=== PATIENT | female | born 1945 | race Caucasian/White ===

== ENCOUNTER 2016-09-29 08:43 | Outpatient (CLI) | payer MEDICARE ==
[2014-08-01 13:54] VITALS: BMI 17.5
[~2016-09-29 08:43] MED LIST: DOLOPHINE HCL10 MG PO; GEMFIBROZIL600 MG PO; LEVAQUIN500 MG PO; LISINOPRIL10 MG PO; MIRALAX17 GM PO; MS CONTIN30 MG PO; PROAIR HFA8.5 GM INH; TESSALON PERLE100 MG PO; TRAZODONE HCL50 MG
== END 2016-09-29 09:40 ==
LOC: D.MAMMO 08:43
DX: R92.8 Other abnormal and inconclusive findings on diagnostic imaging of breast (principal)

== ENCOUNTER 2017-01-06 07:38 | Emergency (ER) | payer MEDICARE ==
[2014-08-01 13:54] VITALS: BMI 17.5
[2017-01-06 08:40] LABS: BASOPHILS 0.1 % (0-2); EOSINOPHILS 0.1 % (0-7); HEMATOCRIT 42.2 % (36.0-48.0); HEMOGLOBIN 13.7 g/dL (12-16); IMMATURE GRANULOCYTES 0.2 % (0-5); LYMPHOCYTES 4.3 % (15-50); MCH 28.5 pg (26.0-34.0); MCHC 32.5 g/dL (31.0-37.0); MCV 87.7 fL (80.0-100.0); MEAN PLATELET VOLUME 10.8 fL (7.4-10.4); MONOCYTES 5.3 % (2-11); RBC 4.81 10x6/uL (4.00-5.40); WBC 8.1 10x3/uL (4.8-10.8)
[2017-01-06 09:13] LABS: ALBUMIN 3.4 g/dL (3.4-5.0); ALKALINE PHOSPHATASE 85 U/L (46-116); ALT (SGPT) 20 U/L (10-68); BILIRUBIN - TOTAL 0.49 mg/dL (0.2-1.3); CALC OSMOLALITY 287 mosm/kg (275-300); CALCIUM 8.5 mg/dL (8.5-10.1); CARBON DIOXIDE 29.7 mmol/L (21.0-32.0); CHLORIDE - SERUM 105 mmol/L (98-107); CREATININE - SERUM 0.8 mg/dL (0.6-1.3); GLUCOSE 94 mg/dL (74-106); LIPASE 108 U/L (73-393); POTASSIUM - SERUM 3.3 mmol/L (3.5-5.1); PROTEIN - SERUM 6.6 g/dL (6.4-8.2); SODIUM 144 mmol/L (136-145); UREA NITROGEN 15 mg/dL (7-18); eGFR NON AFRICAN AMERICAN 75 mL/min (90-120)
[2017-01-06 09:18] LABS: PLATELET COUNT 110 10x3/uL (130-400)
[2017-01-06 09:29] LABS: APPEARANCE CLOUDY (CLEAR); BILIRUBIN NEGATIVE (NEGATIVE); COLOR YELLOW (YELLOW); GLUCOSE NEGATIVE (NEGATIVE); KETONE NEGATIVE (NEGATIVE); LEUKOCYTE ESTERASE 2+ (NEGATIVE); NITRITE NEGATIVE (NEGATIVE); PROTEIN NEGATIVE (NEGATIVE); UROBILINOGEN NORMAL (NORMAL)
[2017-01-06 09:30] LABS: BACTERIA MANY /hpf (NONE SEEN); EPITHELIAL CELLS 0-5 /hpf (0-5); MUCUS <1+ /lpf (NONE SEEN); RED CELLS - URINE 0-5 /hpf (0-5)
== END 2017-01-06 10:32 | disposition home or self-care (01) ==
LOC: D.ER 07:38
PROVIDERS: Emergency Medicine
DX: R11.10 Vomiting, unspecified (principal); K52.9 Noninfective gastroenteritis and colitis, unspecified; K21.9 Gastro-esophageal reflux disease without esophagitis

== ENCOUNTER 2017-10-11 11:33 | Inpatient (IN) | payer MEDICARE ==
[~2017-10-11] VITALS: Ht 160 cm; Wt 43.1 kg
[2017-10-11] VITALS (7 sets, daily range): BP systolic 103–138; BP diastolic 54–66; BMI 16.8
--- NOTE | ~2017-10-11 | HP ---
PATIENT: ANAHI CHINO MEDICAL RECORD: [id number] ACCOUNT: [id number] LOCATION:D.MS [address] : 45 ADMISSION DATE: 10/11/17 HISTORY AND PHYSICAL EXAMINATION HISTORY: A 71-year-old female presented to the Emergency Room with persistent recurrent abdominal pain at epigastric and right upper quadrant. She had one day of persistent nausea and vomiting; now dry heaves, chills, and sweats. PAST MEDICAL HISTORY: Significant for chronic pain, arachnoiditis. She sees a pain management physician in [place]. She is on methadone and trazodone. Also has a history of GERD. She is on omeprazole. She was recently established with her primary care physician in [place]. ALLERGIES: REPORTED PENICILLIN, BACLOFEN, CLINDAMYCIN, CODEINE, METHYLPREDNISOLONE, AND OXYCODONE. REVIEW OF SYSTEMS: GENERAL: Significant for weight loss over the past year, loss of appetite, fatigue. HEENT: Denies cephalgia, visual changes, tinnitus, epistaxis, or dysphagia. CARDIOVASCULAR: Denies chest pain. Denies palpitations. PULMONARY: Denies hemoptysis. Denies night sweats. GASTROINTESTINAL: Denies hematemesis, hematochezia, or melena. She does admit to weight loss, nausea and vomiting acutely with dry heaves this morning, fever, and chills. GENITOURINARY: Denies dysuria. MUSCULOSKELETAL: Chronic pain as noted above. ENDOCRINE: Denies polyuria, polydipsia, or polyphagia. PHYSICAL EXAMINATION: VITAL SIGNS: Temp 99.7, blood pressure 103/55, heart rate 82, respirations 18, O2 sat 94% on room air. GENERAL: Alert and oriented. No present pain, but she has been given morphine IV. HEENT: Head is normocephalic, atraumatic. Eyes; pupils are equally round and reactive. Ears; canals patent. TMs are intact. Nose; nares patent without drainage. Throat; no erythema and no exudate. NECK: Supple. No lymphadenopathy. No JVD. HEART: Regular rate and rhythm. No S3, S4. No rub. LUNGS: Clear to auscultation bilaterally. Breathing is nonlabored. ABDOMEN: Soft. Slightly cachectic appearance. Bowel sounds positive. Hypoactive. Mild epigastric tenderness. No rebound. No guarding. No palpable mass. EXTREMITIES: Present times 4. No edema. NEUROLOGIC: Intact. SKIN: Warm and dry. No rash. LABORATORY DATA: CBC; white count 16,700, hemoglobin 13.1, hematocrit 40, platelets 122. PT is 15.1, INR is 1.23. D-dimer 0.67. Chemistry shows sodium of 144, potassium 3.5, chloride 108, bicarb 28.6, BUN 16, creatinine 0.7. Lactic acid 1.9. Calcium 8.3. AST 16, ALT 15. CK 65, CK-MB 1.2, troponin less than 0.017. Urinalysis; yellow, clear, moderate bacteria. HISTORY AND PHYSICAL [id number] ANAHI CHINO DIAGNOSTIC DATA: CT of abdomen and pelvis; moderately distended gallbladder containing layering sludge, at least mild gallbladder wall thickening, pericholecystic fluid, and dilatation of the intrahepatic biliary ducts and common bile duct measuring up to 1.2 cm in diameter. Concern for biliary obstruction, acute cholecystitis. EKG; sinus rhythm, mild tachycardia. Chest x-ray; no acute cardiopulmonary process. ASSESSMENT AND PLAN: 1. Acute cholecystitis. IV fluids. Blood cultures and urine cultures pending. Invanz 1 gram daily. 2. Chronic pain. The patient has morphine ordered for her acute symptoms. We will hold home medications at this time. 3. Weight loss, persistent abdominal pain over the past year. ERCP ordered. 4. Presented with intractable nausea and vomiting. We will check amylase, lipase. TRANSINT:[id number] Voice Confirmation ID: [id number] DOCUMENT ID: [id number] GIN BENDER DO at 0753 CC: [id number] DICTATION DATE: 10/11/171727 LATHE SETUP OPERATOR: 10/11/17 1828 ADM IN [facility] [address] [place] [address]
--- NOTE | ~2017-10-11 | OP ---
PATIENT NAME: ANAHI CHINO MEDICAL RECORD: [id number] :45 LOCATION:D.MS [place] ADMISSION DATE:10/11/17 SURGEON: DANIEL MCKINNON MD DATE OF OPERATION: 10/13/2017 PREOPERATIVE DIAGNOSES: 1. Acute cholecystitis. 2. Caloric malnutrition. 3. Common bile duct dilatation. 4. Chronic opioid use. POSTOPERATIVE DIAGNOSES: 1. Acute cholecystitis. 2. Caloric malnutrition. 3. Common bile duct dilatation. 4. Chronic opioid use. PROCEDURE: Laparoscopic cholecystectomy. SURGEON: Daniel Mckinnon MD REPORT OF PROCEDURE: The patient's abdomen was prepped and draped in sterile fashion. A cutdown was made on the superior aspect of the umbilicus, and 0 Vicryls were placed in the fascia bilaterally and the fascia was incised with 15-blade. I then bluntly entered the peritoneal cavity and placed a 12-mm Josseline port. Under direct visualization, a 5 mm trocar was placed in the epigastrium and 2 more 5-mm trocars were placed in the right subcostal region. The gallbladder was elevated and showed some acute inflammatory changes with no adhesions. The gallbladder was markedly distended. We aspirated the gallbladder and there was return of bilious fluid. This made the manipulation of the gallbladder much easier. The cystic artery and cystic duct were dissected free and these were clipped proximally and distally and ligated in standard fashion. The gallbladder was then taken off the liver bed using electrocautery and placed into an Endo Catch bag. Any bleeding from the liver bed was then treated with electrocautery. We irrigated out the right upper quadrant and assured there was no sign of any bleeding or bile leakage. At this point, the ports and insufflation were then removed and the gallbladder was taken out through the umbilicus. The umbilical fascia was closed with interrupted 0 Vicryls times 3. The wounds were then irrigated out with normal saline and infused with 10 mL of 0.25% Marcaine with epinephrine. The skin incisions were closed with subcutaneous 5-0 Monocryl and dressed appropriately. COMPLICATIONS: None. CONDITION: Stable. ANESTHESIA: General endotracheal and local. BLOOD LOSS: 50 mL. TRANSINT:[id number] Voice Confirmation ID: [id number] DOCUMENT ID: [id number] OPERATIVE REPORT [id number] CHINO,ANAHI JOYCELYNDANIEL RIOS MD at 1228 CC: [id number] DICTATION DATE: 10/13/17 1527 EMPLOYEE BENEFITS ATTORNEY: 10/13/17 1545 DIS IN 10/15/17 [address] [place] [address]
[~2017-10-11 11:33] MED LIST changes: -TRAZODONE HCL50 MG; +TRAZODONE HCL50 MG PO
[2017-10-11] MEDS ORDERED: OMEPRAZOLE40 MG PO (11:37)
[2017-10-11 12:26] LABS: BASOPHILS 0.1 % (0-2); EOSINOPHILS 0.1 % (0-7); HEMOGLOBIN 13.1 g/dL (12-16); IMMATURE GRANULOCYTES 0.3 % (0-5); LYMPHOCYTES 2.6 % (15-50); MCH 28.4 pg (26.0-34.0); MCHC 32.8 g/dL (31.0-37.0); MCV 86.6 fL (80.0-100.0); MEAN PLATELET VOLUME 11.1 fL (7.4-10.4); MONOCYTES 5.7 % (2-11); NEUTROPHILS 91.2 % (40-80); PLATELET COUNT 122 10x3/uL (130-400); RBC 4.62 10x6/uL (4.00-5.40); RDW 12.2 % (11.5-14.5); WBC 16.7 10x3/uL (4.8-10.8)
[2017-10-11 12:26] LABS: APPEARANCE CLEAR (CLEAR); BILIRUBIN NEGATIVE (NEGATIVE); COLOR YELLOW (YELLOW); GLUCOSE NEGATIVE (NEGATIVE); KETONE NEGATIVE (NEGATIVE); NITRITE NEGATIVE (NEGATIVE); PROTEIN NEGATIVE (NEGATIVE); SPECIFIC GRAVITY 1.015 (1.005-1.020); UROBILINOGEN NORMAL (NORMAL)
[2017-10-11 12:30] LABS: BACTERIA MODERATE /hpf (NONE SEEN); EPITHELIAL CELLS 0-5 /hpf (0-5)
[2017-10-11 12:35] LABS: INR 1.23 (0.85-1.17); PROTIME 15.1 SECONDS (11.6-15.0)
[2017-10-11 12:37] LABS: D-DIMER-QUANTITATIVE 0.67 ug/mLFEU (0.20-0.54)
[2017-10-11 12:46] LABS: ALBUMIN 3.3 g/dL (3.4-5.0); ALKALINE PHOSPHATASE 89 U/L (46-116); ALT (SGPT) 15 U/L (10-68); CALC OSMOLALITY 287 mosm/kg (275-300); CALCIUM 8.3 mg/dL (8.5-10.1); CARBON DIOXIDE 28.6 mmol/L (21.0-32.0); CHLORIDE - SERUM 108 mmol/L (98-107); CREATININE - SERUM 0.7 mg/dL (0.6-1.3); GLUCOSE 107 mg/dL (74-106); POTASSIUM - SERUM 3.5 mmol/L (3.5-5.1); PROTEIN - SERUM 6.3 g/dL (6.4-8.2); SODIUM 144 mmol/L (136-145); UREA NITROGEN 16 mg/dL (7-18); eGFR NON AFRICAN AMERICAN 87 mL/min (90-120)
[2017-10-11 12:59] LABS: CKMB 1.2 U/L (0.0-3.6); CREATINE KINASE 65 UL (21-215); TROPONIN-I < 0.017 ng/mL (0.000-0.060)
[2017-10-12 01:10] VITALS: BP 126/53
[2017-10-12 04:30] VITALS: BP 121/57
[2017-10-12 04:53] LABS: BASOPHILS 0.1 % (0-2); EOSINOPHILS 0.8 % (0-7); HEMATOCRIT 35.5 % (36.0-48.0); HEMOGLOBIN 11.3 g/dL (12-16); IMMATURE GRANULOCYTES 0.2 % (0-5); LYMPHOCYTES 13.3 % (15-50); MCH 27.7 pg (26.0-34.0); MCHC 31.8 g/dL (31.0-37.0); MEAN PLATELET VOLUME 10.9 fL (7.4-10.4); MONOCYTES 7.3 % (2-11); NEUTROPHILS 78.3 % (40-80); PLATELET COUNT 117 10x3/uL (130-400); RBC 4.08 10x6/uL (4.00-5.40); RDW 12.4 % (11.5-14.5)
[2017-10-12 04:54] LABS: INR 1.41 (0.85-1.17); PROTIME 16.7 SECONDS (11.6-15.0); WBC 12.5 10x3/uL (4.8-10.8)
[2017-10-12 05:18] LABS: ALBUMIN 2.6 g/dL (3.4-5.0); ALKALINE PHOSPHATASE 63 U/L (46-116); ALT (SGPT) 14 U/L (10-68); AMYLASE - SERUM 51 U/L (25-115); CALC OSMOLALITY 287 mosm/kg (275-300); CALCIUM 8.1 mg/dL (8.5-10.1); CHLORIDE - SERUM 109 mmol/L (98-107); CREATININE - SERUM 0.6 mg/dL (0.6-1.3); GLUCOSE 78 mg/dL (74-106); LIPASE 55 U/L (73-393); MAGNESIUM - SERUM 1.6 mg/dL (1.8-2.4); PHOSPHOROUS 3.2 mg/dL (2.5-4.9); POTASSIUM - SERUM 3.8 mmol/L (3.5-5.1); PROTEIN - SERUM 5.4 g/dL (6.4-8.2); SODIUM 145 mmol/L (136-145); UREA NITROGEN 13 mg/dL (7-18); eGFR NON AFRICAN AMERICAN > 90 mL/min (90-120)
[2017-10-12 07:52] VITALS: BP 116/55
[2017-10-12 10:22] VITALS: BMI 16.8
[2017-10-12 12:17] VITALS: BP 126/58
[2017-10-12 15:38] VITALS: BP 127/64
[2017-10-12 18:26] VITALS: Ht 160 cm; Wt 43.1 kg
[2017-10-12 21:02] VITALS: BP 134/59
[2017-10-13] VITALS (7 sets, daily range): BP systolic 121–146; BP diastolic 54–68
[2017-10-13 04:54] LABS: BASOPHILS 0.1 % (0-2); EOSINOPHILS 1.2 % (0-7); HEMATOCRIT 36.2 % (36.0-48.0); HEMOGLOBIN 11.4 g/dL (12-16); IMMATURE GRANULOCYTES 0.1 % (0-5); LYMPHOCYTES 15.9 % (15-50); MCH 27.5 pg (26.0-34.0); MCHC 31.5 g/dL (31.0-37.0); MCV 87.4 fL (80.0-100.0); MEAN PLATELET VOLUME 11.3 fL (7.4-10.4); MONOCYTES 8.7 % (2-11); PLATELET COUNT 112 10x3/uL (130-400); RBC 4.14 10x6/uL (4.00-5.40); RDW 12.4 % (11.5-14.5)
[2017-10-13 05:08] LABS: INR 1.33 (0.85-1.17); WBC 8.1 10x3/uL (4.8-10.8)
[2017-10-13 05:26] LABS: ALBUMIN 2.6 g/dL (3.4-5.0); ALKALINE PHOSPHATASE 62 U/L (46-116); ALT (SGPT) 16 U/L (10-68); CARBON DIOXIDE 25.6 mmol/L (21.0-32.0); CHLORIDE - SERUM 111 mmol/L (98-107); CREATININE - SERUM 0.7 mg/dL (0.6-1.3); MAGNESIUM - SERUM 1.6 mg/dL (1.8-2.4); PHOSPHOROUS 3.2 mg/dL (2.5-4.9); POTASSIUM - SERUM 3.8 mmol/L (3.5-5.1); PROTEIN - SERUM 5.5 g/dL (6.4-8.2); SODIUM 143 mmol/L (136-145); THYROID STIMULATING HORMONE 0.34 uIU/mL (0.36-3.74); UREA NITROGEN 15 mg/dL (7-18); eGFR NON AFRICAN AMERICAN 87 mL/min (90-120)
[2017-10-13 05:27] LABS: CALC OSMOLALITY 282 mosm/kg (275-300); GLUCOSE 48 mg/dL (74-106)
[2017-10-14] VITALS (7 sets, daily range): BP systolic 121–143; BP diastolic 77–83
[2017-10-14 04:06] LABS: BASOPHILS 0.1 % (0-2); EOSINOPHILS 0.8 % (0-7); HEMATOCRIT 33.6 % (36.0-48.0); HEMOGLOBIN 10.8 g/dL (12-16); IMMATURE GRANULOCYTES 0.2 % (0-5); LYMPHOCYTES 10.2 % (15-50); MCH 27.7 pg (26.0-34.0); MCHC 32.1 g/dL (31.0-37.0); MCV 86.2 fL (80.0-100.0); MEAN PLATELET VOLUME 10.3 fL (7.4-10.4); NEUTROPHILS 80.7 % (40-80); PLATELET COUNT 107 10x3/uL (130-400); RDW 12.4 % (11.5-14.5)
[2017-10-14 04:23] LABS: ALBUMIN 2.3 g/dL (3.4-5.0); ALKALINE PHOSPHATASE 75 U/L (46-116); BILIRUBIN - TOTAL 0.44 mg/dL (0.2-1.3); CARBON DIOXIDE 24.6 mmol/L (21.0-32.0); CHLORIDE - SERUM 110 mmol/L (98-107); CREATININE - SERUM 0.7 mg/dL (0.6-1.3); MAGNESIUM - SERUM 1.5 mg/dL (1.8-2.4); PHOSPHOROUS 2.9 mg/dL (2.5-4.9); POTASSIUM - SERUM 3.7 mmol/L (3.5-5.1); PROTEIN - SERUM 5.1 g/dL (6.4-8.2); SODIUM 142 mmol/L (136-145); UREA NITROGEN 12 mg/dL (7-18); eGFR NON AFRICAN AMERICAN 87 mL/min (90-120)
[2017-10-14 04:26] LABS: ALT (SGPT) 49 U/L (10-68); CALC OSMOLALITY 282 mosm/kg (275-300); GLUCOSE 104 mg/dL (74-106)
[2017-10-15 04:07] VITALS: BP 131/76
[2017-10-15 05:18] LABS: BASOPHILS 0.1 % (0-2); EOSINOPHILS 4.5 % (0-7); HEMATOCRIT 32.7 % (36.0-48.0); HEMOGLOBIN 10.7 g/dL (12-16); IMMATURE GRANULOCYTES 0.1 % (0-5); LYMPHOCYTES 14.6 % (15-50); MCHC 32.7 g/dL (31.0-37.0); MCV 85.6 fL (80.0-100.0); MONOCYTES 9.4 % (2-11); NEUTROPHILS 71.3 % (40-80); PLATELET COUNT 111 10x3/uL (130-400); RBC 3.82 10x6/uL (4.00-5.40); RDW 12.7 % (11.5-14.5); WBC 6.8 10x3/uL (4.8-10.8)
[2017-10-15 05:33] LABS: ALBUMIN 2.2 g/dL (3.4-5.0); ALKALINE PHOSPHATASE 64 U/L (46-116); ALT (SGPT) 41 U/L (10-68); BILIRUBIN - TOTAL 0.38 mg/dL (0.2-1.3); CALCIUM 7.8 mg/dL (8.5-10.1); CARBON DIOXIDE 23.4 mmol/L (21.0-32.0); CHLORIDE - SERUM 110 mmol/L (98-107); CREATININE - SERUM 0.6 mg/dL (0.6-1.3); GLUCOSE 90 mg/dL (74-106); MAGNESIUM - SERUM 1.7 mg/dL (1.8-2.4); POTASSIUM - SERUM 3.4 mmol/L (3.5-5.1); SODIUM 143 mmol/L (136-145); eGFR NON AFRICAN AMERICAN > 90 mL/min (90-120)
[2017-10-15 05:34] LABS: CALC OSMOLALITY 282 mosm/kg (275-300); PHOSPHOROUS 1.9 mg/dL (2.5-4.9); UREA NITROGEN 7 mg/dL (7-18)
[2017-10-15 08:07] VITALS: BP 121/76
== END 2017-10-15 13:32 | disposition home or self-care (01) | DRG 418 ==
LOC: D.ER 11:33 → D.MS 14:57 → D.EDHOLD 14:57 → D.MS 15:19
PROVIDERS: Family Medicine; Internal Medicine Gastroenterology; Surgery
PROC: 0FT44ZZ Resection of Gallbladder, Percutaneous Endoscopic Approach (ICD-10-PCS; 2017-10-13)
PROC: 0F7C8ZZ Dilation of Ampulla of Vater, Via Natural or Artificial Opening Endoscopic (ICD-10-PCS; 2017-10-13)
PROC: 0F798ZZ Dilation of Common Bile Duct, Via Natural or Artificial Opening Endoscopic (ICD-10-PCS; principal; 2017-10-13 13:00)
DX: K80.00 Calculus of gallbladder with acute cholecystitis without obstruction (principal); Z68.1 Body mass index [BMI] 19.9 or less, adult; E46 Unspecified protein-calorie malnutrition; G89.29 Other chronic pain; K83.8 Other specified diseases of biliary tract

== ENCOUNTER 2018-01-31 12:01 | Observation (INO) | payer MEDICARE ==
[~2018-01-31] VITALS: Ht 160 cm; Wt 42.6 kg
--- NOTE | ~2018-01-31 | DS ---
PATIENT:ANAHI CHINO :45 MEDICAL RECORD: [id number] DISCHARGE SUMMARY ADMISSION DATE: 01/31/18 DISCHARGE DATE: 02/02/18 DATE OF ADMISSION: 01/31/2018 DATE OF DISCHARGE: 02/02/2018 ADMISSION DIAGNOSES: Right lower lobe pneumonia, chronic back pain. DISCHARGE DIAGNOSES: Right lower lobe pneumonia, chronic back pain. HOSPITAL COURSE: The patient was admitted through unassigned medicine with a right lower lobe pneumonia found on CT. Her primary care physician is Dr. Nesbitt in [place]. She also sees pain management in [place]. Chest x-ray had no significant abnormalities. CT of the abdomen and pelvis showed some tree-in-bud opacities right lung base. The patient was afebrile. White count on admission was 19,000. The patient started on IV antibiotics, has remained afebrile, is ambulating independently, tolerating a regular diet, ready to go home. PHYSICAL EXAMINATION: VITAL SIGNS ON DISCHARGE: Temperature 98.1, heart rate 74, respirations 18, blood pressure 147/71, O2 saturations 96% on room air. HEART: Regular rate and rhythm. LUNGS: Clear. ABDOMEN: Soft. EXTREMITIES: Present times 4. NEUROLOGIC: Intact. LABORATORY DATA: CBC on discharge, white count 7.2, hemoglobin 10.9, hematocrit 34, platelets 109. The patient is discharged home in significantly improved condition. Recommend she discuss with her pain management to decrease her methadone. She will discuss this with him. She will follow up with her primary care physician in the next 10 days. We will discharge her on cefdinir for additional 7 days, probiotics. Counseled on the importance of follow up with her primary care. See chart for further details. TRANSINT:[id number] Voice Confirmation ID: [id number] DOCUMENT ID: [id number] GIN BENDER DO at 1300 CC: [id number] DICTATION DATE: 02/02/18 1012 WIND PLANT MANAGER: 02/02/18 1115 DIS IN 02/02/18 [address] [place] [address]
--- NOTE | ~2018-01-31 | HP ---
PATIENT: ANAHI CHINO MEDICAL RECORD: [id number] ACCOUNT: [id number] LOCATION:[address] : [birth year] ADMISSION DATE: 01/31/18 PCP: ENMANUEL NESBITT MD HISTORY AND PHYSICAL EXAMINATION HISTORY OF PRESENT ILLNESS: A 72-year-old female presented to the Emergency Room with fever, chills, and shortness of breath. PAST MEDICAL HISTORY: Significant for arachnoiditis - sees pain management in [place] and has a primary care physician, Dr. Nesbitt in [place]. MEDICATIONS: She is on trazodone and methadone. ALLERGIES: REPORTED PENICILLIN, CODEINE, OXYCODONE, AND BACLOFEN. REVIEW OF SYSTEMS: Reported nausea, shortness of breath - acute onset. PAST SURGICAL HISTORY: Laparoscopic cholecystectomy. REVIEW OF SYSTEMS: GENERAL: No known change in weight. HEENT: No cephalalgia, visual changes, tinnitus, epistaxis, or dysphagia. CARDIOVASCULAR: Denies chest pain, denies palpitations. PULMONARY: Denies hemoptysis. Does admit to mild shortness of breath or chills. GASTROINTESTINAL: Denies hematemesis, hematochezia, or melena. Does admit to nausea and dry heaves. GENITOURINARY: Denies dysuria. MUSCULOSKELETAL: No acute changes. ENDOCRINE: Denies polyuria, polydipsia, or polyphagia. PHYSICAL EXAMINATION: VITAL SIGNS: Temp 98.1, blood pressure 113/63, heart rate 87, respirations 20, O2 sats 95% room air. GENERAL: Alert and oriented, no present distress. HEENT: Normocephalic, atraumatic. Eyes: Pupils equally round, reactive. Ears: Canals patent, TMs are intact. Nose: Nares patent without drainage. Throat: No erythema, no exudates. NECK: Supple. No lymphadenopathy. HEART: Regular rate and rhythm. No S3, S4, no rub. LUNGS: Clear to auscultation bilaterally. Diminished breath sounds, right base. ABDOMEN: Soft, nontender. Bowel sounds positive. EXTREMITIES: Present times 4. NEUROLOGIC: Intact. SKIN: Warm and dry. No rash. LABORATORY DATA: Chest x-ray, no significant findings. CT abdomen and pelvis showed tree-in-bud opacities right base of the lung. No abdominal abnormalities. CBC: White count on admission 19,000, hemoglobin 11.5, hematocrit 35.7, platelets 118. HISTORY AND PHYSICAL [id number] ANAHI CHINO Chemistry: Sodium 141, potassium 4.6, chloride 106, bicarbonate 30.4, BUN 14, creatinine 0.7, glucose 79. LFTs normal. Albumin 2.7. Urinalysis 2+ blood, otherwise normal UA. ASSESSMENT AND PLAN: 1. Right lower lobe pneumonia. The patient was started on Rocephin and Zithromax. 2. Chronic pain, chronic methadone prescribed from a pain management physician. We will continue home medications. Supportive care. TRANSINT:[id number] Voice Confirmation ID: [id number] DOCUMENT ID: [id number] GIN BENDER DO at 1013 CC: [id number] DICTATION DATE: 02/01/18818 HOME ORGANIZER: 02/01/18 1004 ADM IN [facility] [address] [id number]
[~2018-01-31 12:01] MED LIST changes: +OMEPRAZOLE40 MG PO
[2018-01-31 13:11] LABS: BASOPHILS 0.1 % (0-2); EOSINOPHILS 0.1 % (0-7); HEMATOCRIT 40.5 % (36.0-48.0); HEMOGLOBIN 13.4 g/dL (12-16); IMMATURE GRANULOCYTES 0.2 % (0-5); LYMPHOCYTES 3.2 % (15-50); MCHC 33.1 g/dL (31.0-37.0); MCV 84.7 fL (80.0-100.0); MEAN PLATELET VOLUME 10.2 fL (7.4-10.4); MONOCYTES 7.2 % (2-11); NEUTROPHILS 89.2 % (40-80); PLATELET COUNT 117 10x3/uL (130-400); RBC 4.78 10x6/uL (4.00-5.40); RDW 12.7 % (11.5-14.5); WBC 19.1 10x3/uL (4.8-10.8)
[2018-01-31 13:20] LABS: INR 1.13 (0.85-1.17); PROTIME 14.1 SECONDS (11.6-15.0)
[2018-01-31 13:22] LABS: ALBUMIN 3.5 g/dL (3.4-5.0); ALKALINE PHOSPHATASE 89 U/L (46-116); ALT (SGPT) 25 U/L (10-68); BILIRUBIN - TOTAL 0.47 mg/dL (0.2-1.3); CALC OSMOLALITY 280 mosm/kg (275-300); CALCIUM 8.4 mg/dL (8.5-10.1); CARBON DIOXIDE 29.3 mmol/L (21.0-32.0); CHLORIDE - SERUM 104 mmol/L (98-107); CREATININE - SERUM 0.8 mg/dL (0.6-1.3); GLUCOSE 101 mg/dL (74-106); POTASSIUM - SERUM 3.7 mmol/L (3.5-5.1); PROTEIN - SERUM 6.9 g/dL (6.4-8.2); SODIUM 140 mmol/L (136-145); UREA NITROGEN 18 mg/dL (7-18); eGFR NON AFRICAN AMERICAN 75 mL/min (90-120)
[2018-01-31 13:26] LABS: TROPONIN-I < 0.017 ng/mL (0.000-0.060)
[2018-01-31 13:27] LABS: APPEARANCE HAZY (CLEAR); COLOR YELLOW (YELLOW)
[2018-01-31 13:28] LABS: BILIRUBIN NEGATIVE (NEGATIVE); GLUCOSE NEGATIVE (NEGATIVE); KETONE NEGATIVE (NEGATIVE); NITRITE NEGATIVE (NEGATIVE); PROTEIN NEGATIVE (NEGATIVE); UROBILINOGEN NORMAL (NORMAL)
[2018-01-31 13:31] LABS: BACTERIA FEW /hpf (NONE SEEN); EPITHELIAL CELLS 0-5 /hpf (0-5); MUCUS <1+ /lpf (NONE SEEN); WHITE CELLS - URINE RARE /hpf (0-5)
[2018-01-31 19:47] VITALS: BP 110/57
[2018-02-01] VITALS (7 sets, daily range): BP systolic 108–141; BP diastolic 53–70; Ht 160 cm; Wt 42.6 kg
[2018-02-01 05:05] LABS: BASOPHILS 0.1 % (0-2); EOSINOPHILS 0.6 % (0-7); HEMATOCRIT 35.7 % (36.0-48.0); HEMOGLOBIN 11.5 g/dL (12-16); IMMATURE GRANULOCYTES 0.3 % (0-5); LYMPHOCYTES 10.1 % (15-50); MCH 27.5 pg (26.0-34.0); MCHC 32.2 g/dL (31.0-37.0); MCV 85.4 fL (80.0-100.0); MEAN PLATELET VOLUME 11.1 fL (7.4-10.4); MONOCYTES 8.1 % (2-11); NEUTROPHILS 80.8 % (40-80); PLATELET COUNT 118 10x3/uL (130-400); RBC 4.18 10x6/uL (4.00-5.40); RDW 13.1 % (11.5-14.5); WBC 14.2 10x3/uL (4.8-10.8)
[2018-02-01 05:35] LABS: ALBUMIN 2.7 g/dL (3.4-5.0); ALKALINE PHOSPHATASE 60 U/L (46-116); ALT (SGPT) 19 U/L (10-68); BILIRUBIN - TOTAL 0.49 mg/dL (0.2-1.3); CALC OSMOLALITY 280 mosm/kg (275-300); CALCIUM 8.3 mg/dL (8.5-10.1); CARBON DIOXIDE 30.4 mmol/L (21.0-32.0); CHLORIDE - SERUM 106 mmol/L (98-107); CREATININE - SERUM 0.7 mg/dL (0.6-1.3); GLUCOSE 79 mg/dL (74-106); PROTEIN - SERUM 5.8 g/dL (6.4-8.2); SODIUM 141 mmol/L (136-145); UREA NITROGEN 14 mg/dL (7-18); eGFR NON AFRICAN AMERICAN 87 mL/min (90-120)
[2018-02-01 05:38] LABS: POTASSIUM - SERUM 4.6 mmol/L (3.5-5.1)
[2018-02-02 04:00] VITALS: BP 103/67
[2018-02-02 05:21] LABS: BASOPHILS 0.3 % (0-2); EOSINOPHILS 3.1 % (0-7); HEMOGLOBIN 10.9 g/dL (12-16); IMMATURE GRANULOCYTES 0.1 % (0-5); LYMPHOCYTES 20.4 % (15-50); MCH 27.3 pg (26.0-34.0); MCHC 32.1 g/dL (31.0-37.0); MCV 85.2 fL (80.0-100.0); MEAN PLATELET VOLUME 10.6 fL (7.4-10.4); MONOCYTES 11.7 % (2-11); NEUTROPHILS 64.4 % (40-80); PLATELET COUNT 109 10x3/uL (130-400); RBC 3.99 10x6/uL (4.00-5.40)
[2018-02-02 05:30] LABS: WBC 7.2 10x3/uL (4.8-10.8)
[2018-02-02 05:42] LABS: ALBUMIN 2.7 g/dL (3.4-5.0); ALKALINE PHOSPHATASE 62 U/L (46-116); ALT (SGPT) 20 U/L (10-68); BILIRUBIN - TOTAL 0.33 mg/dL (0.2-1.3); CALC OSMOLALITY 281 mosm/kg (275-300); CALCIUM 8.1 mg/dL (8.5-10.1); CARBON DIOXIDE 31.9 mmol/L (21.0-32.0); CHLORIDE - SERUM 106 mmol/L (98-107); CREATININE - SERUM 0.7 mg/dL (0.6-1.3); GLUCOSE 92 mg/dL (74-106); MAGNESIUM - SERUM 1.5 mg/dL (1.8-2.4); PHOSPHOROUS 3.7 mg/dL (2.5-4.9); PROTEIN - SERUM 5.8 g/dL (6.4-8.2); SODIUM 142 mmol/L (136-145); UREA NITROGEN 11 mg/dL (7-18); eGFR NON AFRICAN AMERICAN 87 mL/min (90-120)
[2018-02-02 05:45] LABS: POTASSIUM - SERUM 3.8 mmol/L (3.5-5.1)
[2018-02-02 08:19] VITALS: BP 147/71
[2018-02-02] MEDS ORDERED: OMNICEF300 MG PO (10:07)
[2018-02-02 11:42] VITALS: BP 193/72
== END 2018-02-02 11:00 | disposition home or self-care (01) ==
LOC: D.ER 12:01 → D.M2 17:59 → D.ER 17:59 → D.M2 17:59 → D.EDHOLD 17:59 → OBSVTIME 17:59 → D.EDHOLD 19:52 → D.M2 19:52
PROVIDERS: Family Medicine
DX: J18.9 Pneumonia, unspecified organism (principal); G89.29 Other chronic pain; M54.9 Dorsalgia, unspecified; Z79.891 Long term (current) use of opiate analgesic; R63.6 Underweight; Z68.1 Body mass index [BMI] 19.9 or less, adult

== ENCOUNTER 2018-03-29 16:01 | Observation (INO) | payer MEDICARE ==
[~2018-03-29] VITALS: Ht 160 cm; Wt 45.5 kg
[~2018-03-29 16:01] MED LIST changes: +OMNICEF300 MG PO
[2018-03-29 17:15] LABS: BASOPHILS 0.1 % (0-2); EOSINOPHILS 0.1 % (0-7); HEMATOCRIT 38.9 % (36.0-48.0); IMMATURE GRANULOCYTES 0.1 % (0-5); LYMPHOCYTES 9.3 % (15-50); MCH 28.5 pg (26.0-34.0); MCHC 33.4 g/dL (31.0-37.0); MCV 85.3 fL (80.0-100.0); MEAN PLATELET VOLUME 10.6 fL (7.4-10.4); MONOCYTES 4.9 % (2-11); NEUTROPHILS 85.5 % (40-80); RBC 4.56 10x6/uL (4.00-5.40); RDW 12.1 % (11.5-14.5); WBC 10.5 10x3/uL (4.8-10.8)
[2018-03-29 17:26] LABS: APPEARANCE HAZY (CLEAR); BACTERIA MANY /hpf (NONE SEEN); BILIRUBIN NEGATIVE (NEGATIVE); COLOR DK YELLOW (YELLOW); EPITHELIAL CELLS 0-5 /hpf (0-5); GLUCOSE NEGATIVE (NEGATIVE); KETONE NEGATIVE (NEGATIVE); NITRITE NEGATIVE (NEGATIVE); PROTEIN TRACE mg/dL (NEGATIVE); RED CELLS - URINE >50 /hpf (0-5); UROBILINOGEN NORMAL (NORMAL); WHITE CELLS - URINE 25-50 /hpf (0-5); YEAST >1+ WITH HYPHAE /hpf (NONE SEEN)
[2018-03-29 17:41] LABS: PLATELET COUNT 169 10x3/uL (130-400)
[2018-03-29 17:45] LABS: ALBUMIN 3.8 g/dL (3.4-5.0); ALKALINE PHOSPHATASE 111 U/L (46-116); ALT (SGPT) 17 U/L (10-68); BILIRUBIN - TOTAL 0.37 mg/dL (0.2-1.3); CALC OSMOLALITY 279 mosm/kg (275-300); CARBON DIOXIDE 27.7 mmol/L (21.0-32.0); CHLORIDE - SERUM 102 mmol/L (98-107); CREATININE - SERUM 0.7 mg/dL (0.6-1.3); GLUCOSE 120 mg/dL (74-106); PROTEIN - SERUM 7.2 g/dL (6.4-8.2); SODIUM 139 mmol/L (136-145); UREA NITROGEN 14 mg/dL (7-18); eGFR NON AFRICAN AMERICAN 87 mL/min (90-120)
[2018-03-29 17:49] LABS: AMYLASE - SERUM 56 U/L (25-115); LIPASE 94 U/L (73-393)
[2018-03-29 17:54] LABS: TROPONIN-I < 0.017 ng/mL (0.000-0.060)
[2018-03-29 23:02] VITALS: BP 139/75
[2018-03-30 01:02] VITALS: BP 142/84
[2018-03-30 04:15] VITALS: BP 128/75
[2018-03-30 05:10] LABS: BASOPHILS 0.1 % (0-2); EOSINOPHILS 0 % (0-7); HEMATOCRIT 37.5 % (36.0-48.0); HEMOGLOBIN 12.2 g/dL (12-16); IMMATURE GRANULOCYTES 0.1 % (0-5); LYMPHOCYTES 9.4 % (15-50); MCHC 32.5 g/dL (31.0-37.0); MEAN PLATELET VOLUME 10.5 fL (7.4-10.4); MONOCYTES 9.2 % (2-11); NEUTROPHILS 81.2 % (40-80); PLATELET COUNT 167 10x3/uL (130-400); RBC 4.36 10x6/uL (4.00-5.40); RDW 12.4 % (11.5-14.5); WBC 13.6 10x3/uL (4.8-10.8)
[2018-03-30 06:26] LABS: ANION GAP 15.1 mmol/L (8-16); BILIRUBIN - TOTAL 0.42 mg/dL (0.2-1.3); CALCIUM 8.4 mg/dL (8.5-10.1); CARBON DIOXIDE 25.6 mmol/L (21.0-32.0); CREATININE - SERUM 0.9 mg/dL (0.6-1.3); POTASSIUM - SERUM 4.7 mmol/L (3.5-5.1)
[2018-03-30 08:32] VITALS: BP 153/66
[2018-03-30 12:51] VITALS: Ht 160 cm; Wt 45.5 kg
[2018-03-30] MEDS ORDERED: LEVAQUIN750 MG PO (16:06)
== END 2018-03-30 17:17 | disposition home or self-care (01) ==
LOC: D.ER 16:01 → OBSVTIME 22:15 → D.ER 22:15 → D.EDHOLD 22:15 → D.ER 03-30 17:17 → D.EDHOLD 03-30 17:17
PROVIDERS: Emergency Medicine; Family Medicine
DX: N39.0 Urinary tract infection, site not specified (principal); N20.2 Calculus of kidney with calculus of ureter; K21.9 Gastro-esophageal reflux disease without esophagitis; E86.0 Dehydration; K59.09 Other constipation

== ENCOUNTER 2018-05-05 10:02 | Inpatient (IN) | payer OTHER ==
[~2018-05-05] VITALS: Ht 160 cm; Wt 47.2 kg
[2018-05-05] VITALS (8 sets, daily range): BP systolic 106–147; BP diastolic 61–76; BMI 18.4
[~2018-05-05 10:02] MED LIST changes: +LEVAQUIN750 MG PO
[2018-05-05 10:30] LABS: BASOPHILS 0.2 % (0-2); EOSINOPHILS 0.8 % (0-7); IMMATURE GRANULOCYTES 0.1 % (0-5); LYMPHOCYTES 10.3 % (15-50); MCH 27.5 pg (26.0-34.0); MCHC 32.5 g/dL (31.0-37.0); MCV 84.7 fL (80.0-100.0); MEAN PLATELET VOLUME 10.2 fL (7.4-10.4); MONOCYTES 5.4 % (2-11); NEUTROPHILS 83.2 % (40-80); RBC 4.72 10x6/uL (4.00-5.40); RDW 12.6 % (11.5-14.5); WBC 9.1 10x3/uL (4.8-10.8)
[2018-05-05 10:34] LABS: PLATELET COUNT 305 10x3/uL (130-400)
[2018-05-05 10:42] LABS: ALKALINE PHOSPHATASE 103 U/L (46-116); ALT (SGPT) 13 U/L (10-68); BILIRUBIN - TOTAL 0.49 mg/dL (0.2-1.3); CALC OSMOLALITY 275 mosm/kg (275-300); CALCIUM 9.1 mg/dL (8.5-10.1); CHLORIDE - SERUM 97 mmol/L (98-107); CREATININE - SERUM 0.7 mg/dL (0.6-1.3); GLUCOSE 82 mg/dL (74-106); POTASSIUM - SERUM 3.6 mmol/L (3.5-5.1); PROTEIN - SERUM 7.5 g/dL (6.4-8.2); SODIUM 138 mmol/L (136-145); UREA NITROGEN 14 mg/dL (7-18); eGFR NON AFRICAN AMERICAN 87 mL/min (90-120)
[2018-05-05 10:48] LABS: LIPASE 127 U/L (73-393); TROPONIN-I < 0.017 ng/mL (0.000-0.060)
[2018-05-05 11:36] LABS: COLOR YELLOW (YELLOW)
[2018-05-05 11:37] LABS: APPEARANCE CLEAR (CLEAR); BACTERIA FEW /hpf (NONE SEEN); BILIRUBIN NEGATIVE (NEGATIVE); EPITHELIAL CELLS 0-5 /hpf (0-5); GLUCOSE NEGATIVE (NEGATIVE); KETONE LARGE mg/dL (NEGATIVE); MUCUS <1+ /lpf (NONE SEEN); NITRITE NEGATIVE (NEGATIVE); PROTEIN NEGATIVE (NEGATIVE); RED CELLS - URINE 0-5 /hpf (0-5); SPECIFIC GRAVITY 1.015 (1.005-1.020); UROBILINOGEN NORMAL (NORMAL); WHITE CELLS - URINE RARE /hpf (0-5)
[2018-05-05 11:48] LABS: APTT 32.6 SECONDS (22.8-39.4); INR 1.19 (0.85-1.17); PROTIME 14.6 SECONDS (11.6-15.0)
--- NOTE | 2018-05-05 16:39 | MORECARE ---
CASE MANAGEMENT DISCHARGE SUMMARY PATIENT: ANAHI JAMES UNIT: [id number] ADM DATE: 05/05/18 AGE: 72 : 45 SEX: F ROOM/BED: D.2202 AUTHOR: MAURICIO,DOC PHYSICIAN: REFERRING PHYSICIAN: ARCELIA MULLIGAN MD DATE OF SERVICE: 05/05/18 Discharge Plan Patient Name: ANAHI JAMES Facility: [facility]:[place] : 1945 Planned Disposition: Anticipated Discharge Date: 05/07/18 Discharge Date: Expected LOS: 2 Initial Reviewer: [email or web address] Initial Review Date: 05/05/2018 Generated: 05/05/18 5:39 pm DCP- Discharge Planning Updated by [email or web address]: Mily Gaffney on 05/05/18 3:[address] Patient Name: ANAHI JAMES Admission Status: ER Accout number: [id number] Admission Date: 05-05-2018 : 1945 Admission Diagnosis: Attending: ARCELIA MULLIGAN Current LOS: 1 Anticipated DC Date: 05-07-2018 Planned Disposition: Primary Insurance: [employer] ADV Discharge Planning Comments: CM met with patient and her to complete initial dc planning assessment. CM educated patient on the CM role and verbal consent given by patient to complete assessment. Patient lives at home with her and reports she is independent in her care at home. At discharge patient plans to return home with her and feels this is a safe discharge. Patient denied known discharge needs at this time. CM will continue to follow and will assist as needed with dc plans/needs. Event Sales Manager: Mily Gaffney RN, [facility] DCPIA - Discharge Planning Initial Assessment Updated by [email or web address]: Mily Gaffney on 05/05/18 4:36 pm * Is the patient Alert and Oriented? Yes * How many steps to enter\exit or inside your home? None * PCP Dr. Nesbitt in [place] * Pharmacy [facility] in [place] * Preadmission Environment Home with Family * ADLs Independent * Equipment None * List name and contact numbers for known caregivers / representatives who currently or will assist patient after discharge: Everardo James - - [phone] Florian staley - [phone] * Verbal permission to speak to the caregivers and representatives has been obtained from the patient. Yes * Community resources currently utilized None * Additional services required to return to the preadmission environment? No * Can the patient safely return to the preadmission environment? Yes * Has this patient been hospitalized within the prior 30 days at any hospital? No Patient Name: ANAHI JAMES Page [phone] at 1639 All edits/amendments must be made on the electronic document DICTATION DATE: 05/05/18 163 CARDROOM PLASTIC CARD GRADER: MELIZA 05/05/18 1639 RPT#: [id number] DC DATE: STATUS: ADM IN [facility] [address] [place] [address] END OF REPORT
[2018-05-05 17:34] LABS: PROTEIN - BODY FLUID 4.4 G/DL
[2018-05-05 19:57] LABS: NEUT - BF 5 %
[2018-05-05 19:58] LABS: MACROPHAGES BF 37 %; MESOTHELIALS BF 35 %
[2018-05-05] MEDS ORDERED: FLOMAX0.4 MG PO (21:45)
[2018-05-06 00:46] VITALS: BP 114/64
[2018-05-06 05:20] LABS: BASOPHILS 0.4 % (0-2); EOSINOPHILS 4.5 % (0-7); HEMATOCRIT 34.5 % (36.0-48.0); IMMATURE GRANULOCYTES 0.2 % (0-5); LYMPHOCYTES 16.4 % (15-50); MCH 27.1 pg (26.0-34.0); MCHC 31.9 g/dL (31.0-37.0); MEAN PLATELET VOLUME 10.3 fL (7.4-10.4); MONOCYTES 10.8 % (2-11); NEUTROPHILS 67.7 % (40-80); PLATELET COUNT 254 10x3/uL (130-400); RBC 4.06 10x6/uL (4.00-5.40); RDW 12.5 % (11.5-14.5)
[2018-05-06 05:24] VITALS: BP 114/63
[2018-05-06 05:31] LABS: WBC 5.4 10x3/uL (4.8-10.8)
[2018-05-06 05:33] LABS: INR 1.29 (0.85-1.17); PROTIME 15.5 SECONDS (11.6-15.0)
[2018-05-06 05:39] LABS: % SATURATION 10 % (15-55); IRON 14 ug/dl (35-150); TOTAL IRON BIND CAPACITY 132 ug/dl (260-445); UNSAT IRON BIND CAPACITY 118 ug/dl (150-375)
[2018-05-06 05:58] LABS: BILIRUBIN - TOTAL 0.19 mg/dL (0.2-1.3); CALCIUM 8.2 mg/dL (8.5-10.1); CHOL - HDL RATIO 2.9 ratio (2.3-4.1); CREATININE - SERUM 0.8 mg/dL (0.6-1.3); LDL-HDL RATIO 1.5 ratio (1.5-3.5); POTASSIUM - SERUM 3.6 mmol/L (3.5-5.1); PRE-ALBUMIN 8.2 mg/dL (18.0-35.7); PROTEIN - SERUM 5.9 g/dL (6.4-8.2)
[2018-05-06 06:08] LABS: ALBUMIN 2.2 g/dL (3.4-5.0); CARBON DIOXIDE 26.6 mmol/L (21.0-32.0)
[2018-05-06 09:53] VITALS: BP 130/72
[2018-05-06 12:35] VITALS: Ht 160 cm; Wt 47.2 kg
[2018-05-06 16:00] VITALS: BP 130/80
[2018-05-06 20:42] VITALS: BP 112/67
[2018-05-07 04:32] VITALS: BP 115/74
[2018-05-07 08:48] VITALS: BP 145/75
[2018-05-07 10:14] LABS: BASOPHILS 0.4 % (0-2); EOSINOPHILS 2.5 % (0-7); HEMATOCRIT 38.6 % (36.0-48.0); HEMOGLOBIN 12.2 g/dL (12-16); MCH 27.4 pg (26.0-34.0); MCHC 31.6 g/dL (31.0-37.0); MCV 86.5 fL (80.0-100.0); MEAN PLATELET VOLUME 10.1 fL (7.4-10.4); MONOCYTES 8.9 % (2-11); NEUTROPHILS 78.2 % (40-80); PLATELET COUNT 240 10x3/uL (130-400); RBC 4.46 10x6/uL (4.00-5.40); RDW 12.6 % (11.5-14.5); WBC 5.2 10x3/uL (4.8-10.8)
[2018-05-07 10:25] LABS: CALC OSMOLALITY 273 mosm/kg (275-300); CALCIUM 8.2 mg/dL (8.5-10.1); CARBON DIOXIDE 26.1 mmol/L (21.0-32.0); CHLORIDE - SERUM 102 mmol/L (98-107); CREATININE - SERUM 0.7 mg/dL (0.6-1.3); GLUCOSE 171 mg/dL (74-106); POTASSIUM - SERUM 3.6 mmol/L (3.5-5.1); SODIUM 136 mmol/L (136-145); UREA NITROGEN 7 mg/dL (7-18); eGFR NON AFRICAN AMERICAN 87 mL/min (90-120)
[2018-05-07 11:30] VITALS: BP 112/67
[2018-05-07 16:10] VITALS: BP 125/74
[2018-05-07 20:45] VITALS: BP 132/83
[2018-05-08 00:27] VITALS: BP 117/71
[2018-05-08 04:41] VITALS: BP 120/80
[2018-05-08 08:03] LABS: BASOPHILS 0.4 % (0-2); EOSINOPHILS 3.8 % (0-7); HEMATOCRIT 36.8 % (36.0-48.0); HEMOGLOBIN 11.7 g/dL (12-16); IMMATURE GRANULOCYTES 0.2 % (0-5); LYMPHOCYTES 12.5 % (15-50); MCH 27.5 pg (26.0-34.0); MCHC 31.8 g/dL (31.0-37.0); MCV 86.6 fL (80.0-100.0); MEAN PLATELET VOLUME 10.4 fL (7.4-10.4); MONOCYTES 13.9 % (2-11); NEUTROPHILS 69.2 % (40-80); PLATELET COUNT 249 10x3/uL (130-400); RBC 4.25 10x6/uL (4.00-5.40); RDW 12.7 % (11.5-14.5)
[2018-05-08 08:18] LABS: CALC OSMOLALITY 271 mosm/kg (275-300); CARBON DIOXIDE 27.8 mmol/L (21.0-32.0); CHLORIDE - SERUM 102 mmol/L (98-107); CREATININE - SERUM 0.7 mg/dL (0.6-1.3); GLUCOSE 91 mg/dL (74-106); POTASSIUM - SERUM 3.9 mmol/L (3.5-5.1); SODIUM 137 mmol/L (136-145); UREA NITROGEN 8 mg/dL (7-18); eGFR NON AFRICAN AMERICAN 87 mL/min (90-120)
[2018-05-08 08:24] LABS: APTT 39.7 SECONDS (22.8-39.4); INR 1.22 (0.85-1.17); PROTIME 14.9 SECONDS (11.6-15.0)
[2018-05-08 12:11] LABS: ALPHA FETOPROTEIN -(TUMOR MRK) 1.6 ng/mL (0.0-8.3); CEA 1.1 ng/mL (0.0-4.7)
[2018-05-08 12:55] VITALS: BP 121/72
[2018-05-08 14:16] LABS: EBV - EARLY ANTIGEN AB IGG <9.0 U/mL (0.0-8.9); EBV - NUCLEAR ANTIGEN AB IGG <18.0 U/mL (0.0-17.9); EBV VIRAL CAPSID AB IGG <18.0 U/mL (0.0-17.9); EBV VIRAL CAPSID AB IGM <36.0 U/mL (0.0-35.9)
[2018-05-08 15:16] LABS: ANA REFLEX - DIRECT Negative (Negative)
[2018-05-08 16:02] LABS: PROTEIN - BODY FLUID 3.7 G/DL
[2018-05-08 16:34] VITALS: BP 106/61
[2018-05-08 17:10] LABS: EOS BF 3 %; MACROPHAGES BF 3 %; MESOTHELIALS BF 58 %; NEUT - BF 10 %
[2018-05-08 19:00] VITALS: BP 113/71
[2018-05-09] VITALS: BP 111/66
[2018-05-09 05:18] LABS: BASOPHILS 0.2 % (0-2); EOSINOPHILS 1.7 % (0-7); HEMATOCRIT 35.9 % (36.0-48.0); HEMOGLOBIN 11.2 g/dL (12-16); IMMATURE GRANULOCYTES 0.2 % (0-5); LYMPHOCYTES 8.2 % (15-50); MCHC 31.2 g/dL (31.0-37.0); MCV 86.5 fL (80.0-100.0); MEAN PLATELET VOLUME 10.3 fL (7.4-10.4); MONOCYTES 8.6 % (2-11); NEUTROPHILS 81.1 % (40-80); PLATELET COUNT 239 10x3/uL (130-400); RBC 4.15 10x6/uL (4.00-5.40); RDW 12.7 % (11.5-14.5)
[2018-05-09 05:20] LABS: WBC 10.1 10x3/uL (4.8-10.8)
[2018-05-09 05:47] LABS: ALBUMIN 1.9 g/dL (3.4-5.0); ALKALINE PHOSPHATASE 80 U/L (46-116); ALT (SGPT) 17 U/L (10-68); BILIRUBIN - TOTAL 0.36 mg/dL (0.2-1.3); CALC OSMOLALITY 276 mosm/kg (275-300); CALCIUM 7.8 mg/dL (8.5-10.1); CARBON DIOXIDE 26.4 mmol/L (21.0-32.0); CHLORIDE - SERUM 105 mmol/L (98-107); CREATININE - SERUM 0.6 mg/dL (0.6-1.3); GLUCOSE 78 mg/dL (74-106); PROTEIN - SERUM 5.4 g/dL (6.4-8.2); SODIUM 140 mmol/L (136-145); UREA NITROGEN 9 mg/dL (7-18); eGFR NON AFRICAN AMERICAN > 90 mL/min (90-120)
[2018-05-09 05:51] LABS: POTASSIUM - SERUM 4.5 mmol/L (3.5-5.1)
[2018-05-09 05:55] VITALS: BP 105/59
[2018-05-09 08:40] VITALS: BP 115/66
[2018-05-09] MEDS ORDERED: ALDACTONE25 MG PO (11:29)
--- NOTE | 2018-05-09 12:31 | MORECARE ---
CASE MANAGEMENT DISCHARGE SUMMARY PATIENT: ANAHI JAMES UNIT: [id number] ADM DATE: 05/05/18 AGE: 72 : 45 SEX: F ROOM/BED: D.2202 AUTHOR: BRANDI MARTÍNEZ PHYSICIAN: REFERRING PHYSICIAN: ARCELIA MULLIGAN MD DATE OF SERVICE: 05/09/18 Discharge Plan Patient Name: ANAHI JAMES Facility: [facility]:[place] : 1945 Planned Disposition: Anticipated Discharge Date: 05/07/18 Discharge Date: Expected LOS: 2 Initial Reviewer: [email or web address] Initial Review Date: 05/05/2018 Generated: 05/09/18 1:31 pm Comments DCP- Discharge Planning Updated by [email or web address]: Heena Dodson on 05/09/18 11:[address] Patient Name: ANAHI JAMES Encounter No: [id number] : 1945 Primary Insurance: [employer] Anticipated DC Date: 05-07-2018 Planned Disposition: External Planned Provider: : DCP follow-up note: Patient and family in agreement with discharge plan. Patient does not want/need home health. IMM served and explained. 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 No changes to plan. Case management will follow and assist as needed. Heena Dodson DCP- Discharge Planning Updated by [email or web address]: Mily Gaffney on 05/05/18 3:[address] Patient Name: ANAHI JAMES Admission Status: ER Accout number: [id number] Admission Date: 05-05-2018 : 1945 Admission Diagnosis: Attending: ARCELIA MULLIGAN Current LOS: 1 Anticipated DC Date: 05-07-2018 Planned Disposition: Primary Insurance: [employer] ADV Discharge Planning Comments: CM met with patient and her to complete initial dc planning assessment. CM educated patient on the CM role and verbal consent given by patient to complete assessment. Patient lives at home with her and reports she is independent in her care at home. At discharge patient plans to return home with her and feels this is a safe discharge. Patient denied known discharge needs at this time. CM will continue to follow and will assist as needed with dc plans/needs. Phlebotomist Associate: Mily Gaffney RN, [facility] DCPIA - Discharge Planning Initial Assessment Updated by [email or web address]: Mily Gaffney on 05/05/18 4:36 pm * Is the patient Alert and Oriented? Yes * How many steps to enter\exit or inside your home? None * PCP Dr. Nesbitt in [place] * Pharmacy [facility] in [place] * Preadmission Environment Home with Family * ADLs Independent * Equipment None * List name and contact numbers for known caregivers / representatives who currently or will assist patient after discharge: Everardo James - - [phone] Florian staley - [phone] * Verbal permission to speak to the caregivers and representatives has been obtained from the patient. Yes * Community resources currently utilized None * Additional services required to return to the preadmission environment? No * Can the patient safely return to the preadmission environment? Yes * Has this patient been hospitalized within the prior 30 days at any hospital? No Coverage Notice Reviewer: [email or web address] Luisana Dodson Notice Issued Date-Time: 05/09/2018 12:15 Notice Type: IM Discharge Notice Notice Delivered To: Patient Relationship to Patient: Purchasing Expeditor Name: Delivery Method: HAND - Hand Delivered Mely Days: Prior Verbal Notification: Recipient Understood Notice: Yes Recipient Signature: Yes Med Rec Note Co-signed by Attending: Coverage Notice Comment: Last DP export: 05/05/18 3:39 pm Patient Name: ANAHI JAMES Page [phone] at 1231 All edits/amendments must be made on the electronic document DICTATION DATE: 05/09/18 1230 BIOCHEMISTRY TECHNOLOGIST: MELIZA 05/09/18 1230 RPT#: [id number] DC DATE: STATUS: ADM IN [facility] [address] [place] [address] END OF REPORT
[2018-05-09 15:24] LABS: HEPATITIS C ANTIBODY <0.1 S/CO RAT (0.0-0.9)
[2018-05-09 20:08] LABS: ACID FAST SMEAR Negative (()); AFB SPECIMEN PROCESSING Concentration (())
[2018-05-10 13:20] LABS: FUNGUS STAIN Final report (())
[2018-05-11 14:30] LABS: MITOCHONDRIAL ANTIBODY 5.7 Units (0.0-20.0)
[2018-05-13 16:10] LABS: SMOOTH MUSCLE ABS (ACTIN) 17 Units (0-19)
== END 2018-05-09 14:44 | disposition home or self-care (01) | DRG 433 ==
LOC: D.ER 10:02 → D.EDHOLD 12:45 → D.MS 12:45
PROVIDERS: Family Medicine; General Practice; Internal Medicine Gastroenterology; Radiology Diagnostic Radiology; ADMIT Internal Medicine Nephrology
PROC: 0W9G3ZZ Drainage of Peritoneal Cavity, Percutaneous Approach (ICD-10-PCS; principal; 2018-05-05)
PROC: 0W993ZZ Drainage of Right Pleural Cavity, Percutaneous Approach (ICD-10-PCS; 2018-05-08)
PROC: 0FB03ZX Excision of Liver, Percutaneous Approach, Diagnostic (ICD-10-PCS; 2018-05-08)
PROC: 0W9G3ZZ Drainage of Peritoneal Cavity, Percutaneous Approach (ICD-10-PCS; 2018-05-08 14:00)
DX: K74.60 Unspecified cirrhosis of liver (principal); R18.8 Other ascites; E46 Unspecified protein-calorie malnutrition; Z68.1 Body mass index [BMI] 19.9 or less, adult; K59.09 Other constipation; K21.9 Gastro-esophageal reflux disease without esophagitis; G89.4 Chronic pain syndrome; D50.9 Iron deficiency anemia, unspecified

== ENCOUNTER 2018-05-23 13:02 | Inpatient (IN) | payer OTHER ==
[~2018-05-23] VITALS: Ht 160 cm; Wt 42.3 kg
[~2018-05-23 13:02] MED LIST changes: +ALDACTONE25 MG PO; +FLOMAX0.4 MG PO
[2018-05-23 13:29] LABS: BASOPHILS 0.3 % (0-2); EOSINOPHILS 0.1 % (0-7); HEMATOCRIT 37.9 % (36.0-48.0); HEMOGLOBIN 12.5 g/dL (12-16); IMMATURE GRANULOCYTES 0.3 % (0-5); MCH 26.7 pg (26.0-34.0); MEAN PLATELET VOLUME 9.4 fL (7.4-10.4); MONOCYTES 6.5 % (2-11); NEUTROPHILS 86.8 % (40-80); RBC 4.68 10x6/uL (4.00-5.40); WBC 10.7 10x3/uL (4.8-10.8)
[2018-05-23 13:44] LABS: ALBUMIN 2.4 g/dL (3.4-5.0); ALKALINE PHOSPHATASE 134 U/L (46-116); ALT (SGPT) 19 U/L (10-68); BILIRUBIN - TOTAL 0.28 mg/dL (0.2-1.3); CALC OSMOLALITY 268 mosm/kg (275-300); CALCIUM 8.8 mg/dL (8.5-10.1); CARBON DIOXIDE 20.9 mmol/L (21.0-32.0); CHLORIDE - SERUM 96 mmol/L (98-107); CREATININE - SERUM 1.1 mg/dL (0.6-1.3); GLUCOSE 99 mg/dL (74-106); PLATELET COUNT 397 10x3/uL (130-400); POTASSIUM - SERUM 5.2 mmol/L (3.5-5.1); PROTEIN - SERUM 7.8 g/dL (6.4-8.2); SODIUM 131 mmol/L (136-145); UREA NITROGEN 30 mg/dL (7-18); eGFR NON AFRICAN AMERICAN 52 mL/min (90-120)
[2018-05-23 13:49] LABS: APTT 35.4 SECONDS (22.8-39.4); INR 1.21 (0.85-1.17); PROTIME 14.7 SECONDS (11.6-15.0)
[2018-05-23 13:55] LABS: AMYLASE - SERUM 46 U/L (25-115); CKMB 0.8 U/L (0.0-3.6); CREATINE KINASE 30 UL (21-215); LIPASE 161 U/L (73-393); PRO BNP 199 pg/mL (0-125); TROPONIN-I < 0.017 ng/mL (0.000-0.060)
[2018-05-23 14:00] VITALS: BP 120/80
[2018-05-23 15:00] VITALS: BP 106/71
--- NOTE | 2018-05-23 15:00 | NUR ---
PT STABLE, CALL LIGHT WITHIN REACH, DENIES NEEDS, WILL CONTINUE TO MONITOR.
[2018-05-23 15:55] LABS: CKMB 0.7 U/L (0.0-3.6); LIPASE 163 U/L (73-393)
[2018-05-23 15:56] LABS: DIGOXIN 0.04 ng/mL (0.90-2.00); TROPONIN-I < 0.017 ng/mL (0.000-0.060)
[2018-05-23 16:00] VITALS: BP 128/74
--- NOTE | 2018-05-23 16:21 | NUR ---
HEPARIN RATE VERIFIED WITH IVONE ARITA. RATE INFUSING AT 2ML/HR OR 200UNITS/HOUR.
[2018-05-23 17:15] VITALS: BP 120/64
--- NOTE | 2018-05-23 18:00 | NUR ---
ATTEMPTED TO CALL REPORT WAS HUNG UP ON. PT STABLE, CALL LIGHT WITHIN REACH, DENIES NEEDS, WILL CONTINUE TO MONITOR.
--- NOTE | 2018-05-23 19:30 | NUR ---
PT REPORT HANDED OFF TO NURSE YADIEL. ROOM 2107 PT STABLE, CALLLIGHT WITHIN REACH, DENIES NEEDS WILL CONTINU ETO MONITOR.
--- NOTE | 2018-05-23 19:50 | NUR ---
PT ARRIVED FROM ER. PT IS AAO, HAS HEPARIN INFUSING TO LEFT FOREARM AT 2 UNITS. WILL CHECK ORDER. PT IS EATING A SANDWINCH. PT DENIES ANY NEEDS. S1S2 WNL. LUNGS HAS LOWER LOBES DIMINISHED. PT SPEAKS OF PAST ADMIT WITH ASCITES. ABDOMEN FIRM, DENIES TENDERNESS. PT WILL CALL FOR ASSIST WHEN NEEDED. NO S/S OF DISTRESS. WILL CPOC
[2018-05-23 20:00] VITALS: BP 141/75
[2018-05-24] VITALS (7 sets, daily range): BP systolic 104–141; BP diastolic 65–78; Ht 160 cm; Wt 42.3 kg
--- NOTE | 2018-05-24 00:51 | NUR ---
PT GOT 10 MG OF METHADONE PO. PT STATES ONLY TAKES 10MG NOW OLD DOSE IS 20MG. PT IS RESTING IN BED. ASSISTED TO RESTROOM. PT HAS NO S/S OF DISTRESS. BEDLOW AND CALL LIGHT IN REACH. WILL CPOC
--- NOTE | 2018-05-24 03:55 | NUR ---
BOLUS OF 3000 UNITS GIVEN AND INCREASED BY 200 UNITS
[2018-05-24 06:27] LABS: BASOPHILS 0.4 % (0-2); HEMATOCRIT 36.6 % (36.0-48.0); HEMOGLOBIN 11.9 g/dL (12-16); IMMATURE GRANULOCYTES 0.3 % (0-5); LYMPHOCYTES 13.5 % (15-50); MCH 26.6 pg (26.0-34.0); MCHC 32.5 g/dL (31.0-37.0); MCV 81.9 fL (80.0-100.0); MEAN PLATELET VOLUME 9.6 fL (7.4-10.4); MONOCYTES 10.8 % (2-11); PLATELET COUNT 377 10x3/uL (130-400); RBC 4.47 10x6/uL (4.00-5.40); RDW 13.2 % (11.5-14.5)
--- NOTE | 2018-05-24 06:28 | NUR ---
PT RESTING IN BED. DENIES ANY NEEDS. NO S/S OF DISTRESS. WILL CALL FOR ASSIST WHEN NEEDED. WILL CPOC
[2018-05-24 06:29] LABS: WBC 7.8 10x3/uL (4.8-10.8)
[2018-05-24 07:08] LABS: ALBUMIN 2.1 g/dL (3.4-5.0); ANION GAP 18.2 mmol/L (8-16); BILIRUBIN - TOTAL 0.2 mg/dL (0.2-1.3); CALCIUM 8.8 mg/dL (8.5-10.1); CARBON DIOXIDE 23.3 mmol/L (21.0-32.0); CREATININE - SERUM 1.1 mg/dL (0.6-1.3); MAGNESIUM - SERUM 2.1 mg/dL (1.8-2.4); POTASSIUM - SERUM 5.5 mmol/L (3.5-5.1); PROTEIN - SERUM 7.2 g/dL (6.4-8.2)
--- NOTE | 2018-05-24 09:27 | NUR ---
APTT 32.1. PER HEPARIN PROTOCOL SHEET GAVE 3000 UNIT HEPARIN BOLUS AND INCREASED FROM 4ML/HR(400 UNITS) TO 6ML/HR (600 UNITS).
--- NOTE | 2018-05-24 09:29 | NUR ---
APTT REDRAW ORDERED FOR 1530.
--- NOTE | 2018-05-24 10:32 | NUR ---
DC'D HEPARIN DRIP FLUSHED RIGHT FA 20G IV WITH 10ML OF NS AND SL IV AND FLUSHED LEFT FA 20G IV WITH 10ML OF NS AND SL IV.
--- NOTE | 2018-05-24 10:56 | NUR ---
PT STATES SHE HAS NOT TKAEN FLOMAX SINCE LAST TUESDAY BECAUSE IT CAUSES BLURRY VISION AND SHE DOES NOT WANT TO TAKE IT NOW. CHARTED REFUSED IN EMAR.
--- NOTE | 2018-05-24 12:25 | NUR ---
CHELITA NEEDS OR C/O AT THIS TIME. FAMILY MEMBER AT BS. CALL LIGHT IN REACH.
--- NOTE | 2018-05-24 12:26 | NUR ---
PT SITTING ON SIDE OF BED. EATING LUNCH. AT BEDSIDE. PT HAS NO FURTHER NEEDS AT THIS TIME. BED LOW. CL IN REACH.
--- NOTE | 2018-05-24 18:12 | NUR ---
DR. MONGE STATED TO ME TO PLACE ORDER FOR ENSURE ON EVERY TRAY. ORDER PLACED IN DIET ORDER.
--- NOTE | 2018-05-24 19:30 | NUR ---
INITIAL ROUNDS COMPLETED - PT RESTING COMFORTABLY IN BED. A/0 X4, DENIES ANY PAIN OR DISCOMFORT AT THIS TIME. RR EVEN AND UL, NO S/S OF DISTRESS. ABD FIRM AND DISTENDED. INITIAL ASSESSMENT COMPLETED. PT UP TO BATHROOM, STAND BY ASSIST, SOMETIMES GETS SHORT OF BREATH AND WEAK. DENIES FURTHER NEEDS AT THIS TIME. WILL CONTINUE TO ASSESS AND FOLLOW POC. CL IN REACH, SR UPX2, BED IN LOWEST POSITION.
[2018-05-25] VITALS: BP 115/67
--- NOTE | 2018-05-25 03:25 | NUR ---
PT RESTING QUIETLY IN BED WITH EYES CLOSED. RR EVEN AND UL, NO S/S OF DISTRESS. NO NEEDS NOTED AT THIS TIME. IV SL'D, ALBUMIN INFUSION COMPLETE. WILL CONTINUE TO ASSESS NEEDS. CL IN REACH, SR UP X2, BED IN LOWEST POSITION.
[2018-05-25 04:00] VITALS: BP 130/71
[2018-05-25 05:05] LABS: BASOPHILS 0.4 % (0-2); EOSINOPHILS 1.3 % (0-7); HEMATOCRIT 34.3 % (36.0-48.0); IMMATURE GRANULOCYTES 0.3 % (0-5); LYMPHOCYTES 9.9 % (15-50); MCH 26.3 pg (26.0-34.0); MCHC 32.1 g/dL (31.0-37.0); MCV 82.1 fL (80.0-100.0); MEAN PLATELET VOLUME 9.2 fL (7.4-10.4); NEUTROPHILS 79.1 % (40-80); PLATELET COUNT 358 10x3/uL (130-400); RBC 4.18 10x6/uL (4.00-5.40); RDW 13.2 % (11.5-14.5); WBC 7.6 10x3/uL (4.8-10.8)
[2018-05-25 05:23] LABS: BILIRUBIN - TOTAL 0.51 mg/dL (0.2-1.3); CALCIUM 9.3 mg/dL (8.5-10.1); CARBON DIOXIDE 24.2 mmol/L (21.0-32.0); MAGNESIUM - SERUM 1.9 mg/dL (1.8-2.4); POTASSIUM - SERUM 5.2 mmol/L (3.5-5.1); PROTEIN - SERUM 7.9 g/dL (6.4-8.2)
[2018-05-25 05:30] LABS: ALBUMIN 3.1 g/dL (3.4-5.0)
[2018-05-25 07:57] VITALS: BP 135/85
[2018-05-25 08:31] LABS: INR 1.23 (0.85-1.17)
--- NOTE | 2018-05-25 08:35 | NUR ---
CONSENTS SIGNED AND IN CHART FOR PARACENTESIS.
--- NOTE | 2018-05-25 09:44 | NUR ---
CHELITA NEEDS OR C/O AT THIS TIME. RESTS IN BED WITH CALL LIGHT IN REACH. WILL CONT. PLAN OF CARE.
[2018-05-25 10:37] LABS: % SATURATION 14 % (15-55); IRON 21 ug/dl (35-150); TOTAL IRON BIND CAPACITY 143 ug/dl (260-445); UNSAT IRON BIND CAPACITY 122 ug/dl (150-375)
--- NOTE | 2018-05-25 10:51 | NUR ---
PT PREOPED AND TELEMTRY TAKEN OFF FOR PARACENTESIS. PT TAKEN VIA BED ACCOMPANIED BY RADIOLOGY NURSE AND FMAILY.
--- NOTE | 2018-05-25 11:44 | NUR ---
PT RETURNED FROM PARACENTESIS. RADIOLOGY NURSE STATES THEY GOT 2500CC OFF AND SHE GAVE 0.5 OF VERSED, 25 OF FENTANYL, AND 25MG OF ALBUMIN. ALBUMIN INFUSING BY GRAVITY NOW THROUGH LEFT FA 20G IV. PT IS ALERT AND ORIENTED AND VS STABLE. RIGHT SIDE OF ABDOMEN DRESSING C/D/I.
--- NOTE | 2018-05-25 12:23 | NUR ---
JOSEPHINE FROM RADIOLOGY STATES SHE WILL TAKE CARE OF THE FLUID ORDERS.
[2018-05-25 12:42] VITALS: BP 105/56
--- NOTE | 2018-05-25 12:51 | NUR ---
SPOKE WITH JENNIFER TEJADA ABOUT PT WANTING FLOMAX CHANGED TO SOMETHING [id number] SHE STATES JUST KEEP HOLDING IT FOR NOW.
--- NOTE | 2018-05-25 12:54 | NUR ---
SPOKE WITH JOSEPHINE FROM SHE STATES THEY DID NOT SEND ANY FLUID TO LAB SO THEY ARE UNABLE TO GET THE COLLECTIONS SHE STATES IF THE MD NEEDS TO SPEAK WITH HER HER NUMBER IS [id number]. SHE ALSO STATED PT HAD A PARACETESIS A FEW WEEKS AGO AND THAT FLUID WAS COLLECTED [facility] KAILA DE LA TORRE.
--- NOTE | 2018-05-25 14:37 | NUR ---
SPOKE WITH DR. BRIGHT'S NURSE AND STATED TO HER FLUID COLLECTION WAS NOT DONE FROM PARACENTESIS BUT [facility]. SHE VERBALIZED UNDERSTANDING AND STATED SHE WOULD LET DR. BRIGHT KNOW.
[2018-05-25 15:30] VITALS: BP 104/66
--- NOTE | 2018-05-25 16:55 | NUR ---
STATED TO PT WE NEED A STOOL SPECIMEN COLLECTED. HAT PLACED IN COMMODE AND INSTRUCTIONS GIVEN TO PT. PT VERBALIZED UNDERSTANDING.
--- NOTE | 2018-05-25 17:28 | NUR ---
PT STATES SHE IS HAVING ACID REFLUX AND WOULD LIKE SOMETHING PRN. DR. FREY GAVE ME V.O. FOR PEPCID 40MG BIDPRN.
[2018-05-25 20:00] VITALS: BP 103/70
[2018-05-26 05:03] LABS: BASOPHILS 0.2 % (0-2); EOSINOPHILS 1.7 % (0-7); HEMATOCRIT 36.8 % (36.0-48.0); HEMOGLOBIN 11.6 g/dL (12-16); IMMATURE GRANULOCYTES 0.2 % (0-5); LYMPHOCYTES 7.1 % (15-50); MCH 26.2 pg (26.0-34.0); MCHC 31.5 g/dL (31.0-37.0); MCV 83.1 fL (80.0-100.0); MEAN PLATELET VOLUME 9.8 fL (7.4-10.4); MONOCYTES 8.7 % (2-11); NEUTROPHILS 82.1 % (40-80); PLATELET COUNT 352 10x3/uL (130-400); RBC 4.43 10x6/uL (4.00-5.40); RDW 13.1 % (11.5-14.5)
[2018-05-26 05:07] LABS: WBC 9.8 10x3/uL (4.8-10.8)
[2018-05-26 05:12] LABS: ALBUMIN 3.1 g/dL (3.4-5.0); ANION GAP 16.7 mmol/L (8-16); BILIRUBIN - TOTAL 0.39 mg/dL (0.2-1.3); CALCIUM 9.1 mg/dL (8.5-10.1); CARBON DIOXIDE 24.4 mmol/L (21.0-32.0); CREATININE - SERUM 1.1 mg/dL (0.6-1.3); MAGNESIUM - SERUM 1.9 mg/dL (1.8-2.4); POTASSIUM - SERUM 5.1 mmol/L (3.5-5.1); PROTEIN - SERUM 7.7 g/dL (6.4-8.2)
--- NOTE | 2018-05-26 07:30 | NUR ---
RECEIVED A/A/OX4 LAYING IN BED WATCHING TV. DENIES ANY NEEDS AT THIS TIME. DRESSING TO RIGHT MID ABD C/D/I. PT IS UP AD CHARLES WITHOUT ANY PROBLEM NOTED. BED IN LOWEST POSITION WITH SIDERAILS UP X2 AND CALL LIGHT IN REACH. ASSESSMENT COMPLETED. WILL CONTINUE POC
[2018-05-26 09:12] VITALS: BP 97/71
[2018-05-26 09:19] LABS: FOLATE (FOLIC ACID) - SERUM 12.5 ng/mL (>3.0)
--- NOTE | 2018-05-26 09:45 | NUR ---
NO NEEDS VOICED AT THIS TIME. CALL LIGHT IN REACH. WILL MONITOR.
--- NOTE | 2018-05-26 12:03 | NUR ---
Nutrition follow-up: Diet: Low sodium PO intake ~50% average of meals; Ensure provided TID Labs reviewed Wt: 93# Due to poor po intake, will change diet order to regular as tolerated to encourage increased po intake. Will continue to provide nutritional supplements. RDN following.
[2018-05-26 14:37] VITALS: BP 103/75
[2018-05-26] MEDS ORDERED: XIFAXAN550 MG PO (14:40)
[2018-05-26] MEDS ORDERED: ALDACTONE25 MG PO (14:40)
[2018-05-26] MEDS ORDERED: LASIX40 MG PO (14:41)
--- NOTE | 2018-05-26 15:30 | NUR ---
DISCHARGE INSTURCTIONS REVIEWED WITH PT AND VERBALIZES UNDERSTANDING. MEDS WERE SENT TO [facility] IN [place]. PT STATES THAT IS NOW CLOSED AND SHE USES [facility] IN [place]. RX CALLED TO [facility] FOR HER. SL DC'D X 2 WITH BOTH TIPS INTACT. LEFT FLOOR VIA WC AND LEFT FACILITY WITH HER VIA PRIVATE VEHICLE.
--- NOTE | 2018-05-26 16:45 | MORECARE ---
CASE MANAGEMENT DISCHARGE SUMMARY PATIENT: ANAHI CHINO UNIT: [id number] ADM DATE: 05/23/18 AGE: 72 : 45 SEX: F ROOM/BED: D.5416 AUTHOR: MAURICIO,DOC PHYSICIAN: REFERRING PHYSICIAN: SHAWN POPE DO DATE OF SERVICE: 05/26/18 Discharge Plan Patient Name: ANAHI CHINO Facility: [facility]:[place] : 1945 Planned Disposition: Home Anticipated Discharge Date: 05/26/18 Discharge Date: 05/26/2018 Expected LOS: 3 Initial Reviewer: [email or web address] Initial Review Date: 05/26/2018 Generated: 05/26/18 5:45 pm Comments DCP- Discharge Planning Updated by [email or web address]: Taqueria Thibodeaux on 05/26/18 3:[address] Patient Name: ANAHI CHINO Admission Status: ER Accout number: [id number] Admission Date: 05-23-2018 : 1945 Admission Diagnosis:SHORTNESS OF BREATH Attending: SHAWN POPE Current LOS: 3 Anticipated DC Date: 05-26-2018 Planned Disposition: Home Primary [facility] [employer] [facility] Discharge Planning Comments: CM MET WITH PT IN ROOM TO DISCUSS DISCHARGE PLANNING AND NEEDS. PT REPORTS LIVING AT HOME INDEPENDENTLY WITH HER SPOUSE. PT HAS NO MEDICAL EQUIPMENT AND NO OUTSIDE SERVICES ASSISTING IN THE HOME. CM DISCUSSED AVAILABILITY OF HOME HEALTH, REHAB SERVICES AND MEDICAL EQUIPMENT. PT DENIES DISCHARGE NEEDS, REPORTS HER SPOUSE WILL PICK HER UP FOR DISCHARGE HOME. IMPORTANT MESSAGE FROM MEDICARE PROVIDED AND EXPLAINED. Shipper: Taqueria Thibodeaux DCPIA - Discharge Planning Initial Assessment Updated by [email or web address]: Taqueria Thibodeaux on 05/26/18 4:37 pm * Is the patient Alert and Oriented? Yes * How many steps to enter\exit or inside your home? NONE * PCP DR PENALOZA IN [place] * Pharmacy [facility] [place] * Preadmission Environment Home with Family * ADLs Independent * Equipment None * Other Equipment NO MEDICAL EQUIPMENT PROVIDER PREFERENCE * List name and contact numbers for known caregivers / representatives who currently or will assist patient after discharge: GIN CHINO, SPOUSE, * Verbal permission to speak to the caregivers and representatives has been obtained from the patient. N/A * Community resources currently utilized None * Please name any agencies selected above. NONE * Additional services required to return to the preadmission environment? No * Can the patient safely return to the preadmission environment? Yes * Has this patient been hospitalized within the prior 30 days at any hospital? Yes Coverage Notice Reviewer: [id number] - Taqueria Thibodeaux Notice Issued Date-Time: 05/26/2018 13:40 Notice Type: IM Discharge Notice Notice Delivered To: Patient Relationship to Patient: Airdox Fitter Name: Delivery Method: HAND - Hand Delivered Mely Days: Prior Verbal Notification: Recipient Understood Notice: Yes Recipient Signature: Yes Med Rec Note Co-signed by Attending: Coverage Notice Comment: Patient Name: ANAHI CHINO Page [phone] at 1645 All edits/amendments must be made on the electronic document DICTATION DATE: 05/26/181644 AUDIOLOGY DOCTOR: MELIZA 05/26/18 1645 RPT#: [id number] DC DATE:05/26/18 STATUS: DIS IN [facility] [address] [place] [address] END OF REPORT
== END 2018-05-26 16:15 | disposition home or self-care (01) | DRG 432 ==
LOC: D.ER 13:02 → D.EDHOLD 16:58 → D.M2 16:58
PROVIDERS: Family Medicine; Radiology Vascular & Interventional Radiology; ADMIT Family Medicine
PROC: 0W9G3ZZ Drainage of Peritoneal Cavity, Percutaneous Approach (ICD-10-PCS; principal; 2018-05-25 11:00)
DX: K74.60 Unspecified cirrhosis of liver (principal); E43 Unspecified severe protein-calorie malnutrition; R18.8 Other ascites; Z68.1 Body mass index [BMI] 19.9 or less, adult; K21.9 Gastro-esophageal reflux disease without esophagitis; K59.09 Other constipation; G89.4 Chronic pain syndrome; E87.5 Hyperkalemia

== ENCOUNTER 2018-06-02 15:27 | Inpatient (IN) | payer OTHER ==
[~2018-06-02] VITALS: Ht 160 cm; Wt 40.4 kg
[~2018-06-02 15:27] MED LIST changes: +LASIX40 MG PO; +XIFAXAN550 MG PO
[2018-06-02 16:51] LABS: HEMATOCRIT 44.2 % (36.0-48.0); HEMOGLOBIN 14.6 g/dL (12-16); MCH 26.3 pg (26.0-34.0); MCV 79.5 fL (80.0-100.0); MEAN PLATELET VOLUME 10.4 fL (7.4-10.4); PLATELET COUNT 283 10x3/uL (130-400); RBC 5.56 10x6/uL (4.00-5.40); RDW 13.7 % (11.5-14.5); WBC 26.7 10x3/uL (4.8-10.8)
[2018-06-02 17:21] LABS: INR 1.33 (0.85-1.17); PROTIME 15.9 SECONDS (11.6-15.0)
[2018-06-02 17:24] LABS: EOSINOPHILS 1 % (0-7); LYMPHOCYTES 1 % (15-50); MONOCYTES 1 % (2-11); NEUTROPHILS 97 % (40-80); PLATELET ESTIMATE NORMAL
[2018-06-02 17:56] LABS: ALBUMIN 3.3 g/dL (3.4-5.0); ALKALINE PHOSPHATASE 186 U/L (46-116); ALT (SGPT) 14 U/L (10-68); BILIRUBIN - TOTAL 0.47 mg/dL (0.2-1.3); CALC OSMOLALITY 302 mosm/kg (275-300); CALCIUM 9.2 mg/dL (8.5-10.1); CARBON DIOXIDE 22.7 mmol/L (21.0-32.0); CHLORIDE - SERUM 95 mmol/L (98-107); CREATININE - SERUM 1.3 mg/dL (0.6-1.3); GLUCOSE 148 mg/dL (74-106); POTASSIUM - SERUM 4.6 mmol/L (3.5-5.1); SODIUM 136 mmol/L (136-145); UREA NITROGEN 91 mg/dL (7-18); eGFR NON AFRICAN AMERICAN 43 mL/min (90-120)
[2018-06-02 18:22] LABS: AMYLASE - SERUM 72 U/L (25-115); C-REACTIVE PROTEIN 22.9 mg/dL (0.0-0.9); CKMB 0.7 U/L (0.0-3.6); CREATINE KINASE 39 UL (21-215); LIPASE 313 U/L (73-393); PRO BNP 974 pg/mL (0-125); THYROID STIMULATING HORMONE 0.77 uIU/mL (0.36-3.74); TROPONIN-I < 0.017 ng/mL (0.000-0.060)
[2018-06-02 20:07] LABS: APPEARANCE CLEAR (CLEAR); BACTERIA MANY /hpf (NONE SEEN); BILIRUBIN NEGATIVE (NEGATIVE); COLOR YELLOW (YELLOW); GLUCOSE NEGATIVE (NEGATIVE); KETONE NEGATIVE (NEGATIVE); NITRITE NEGATIVE (NEGATIVE); PROTEIN NEGATIVE (NEGATIVE); RED CELLS - URINE OCC /hpf (0-5); UROBILINOGEN NORMAL (NORMAL); WHITE CELLS - URINE OCC /hpf (0-5)
[2018-06-02 20:08] LABS: YEAST >1+ WITH HYPHAE /hpf (NONE SEEN)
--- NOTE | 2018-06-02 20:30 | NUR ---
WATER AND ICE CHIPS PROVIDED TO PT. PT DENIES ANY OTHER NEEDS AT PRESENT
--- NOTE | 2018-06-02 21:40 | NUR ---
PT ARRIVED TO ROOM 1213, MED REC, PHARMACY AND HISTORY COMPLETE. PT IS AAO X4, S1S2 HR APICAL 124, LUNGS CLEAR EXCEPT RLL CRACKLES. ON 5L O2 NC. DENIES A COUGH. IV RIGHT FOREARM 20G NS INFUSING ORDERED. PT HAS A ABARCA PLACED FOR RETENTION IN ER. STRAW COLORED URINE. BOWEL SOUNDS ACTIVE. PT HAS GENERALIZED WEAKNESS, PT WILL CALL FOR ASSIST WHEN NEEDED. NO S/S OF DISTRESS. BED LOW WILL CPOC
[2018-06-03] VITALS (7 sets, daily range): BP systolic 98–125; BP diastolic 63–72; BMI 15.8; BMI 15.7
--- NOTE | 2018-06-03 01:05 | NUR ---
PAGED DR MULLIGAN REGARDING NEW ADMIT, DR MULLIGAN STATED RESTART PT DOLOPHINE 10MG Q12H NO OTHER ORDERS.
--- NOTE | 2018-06-03 06:21 | NUR ---
NEW NS BAG HUNG. INFUSING ORDERED AT 100ML/HR TO RIGHT FOREARM. PT DENIES ANY NEEDS. NO S/S OF DISTRESS. WILL CPOC
[2018-06-03 06:40] LABS: BASOPHILS 0.1 % (0-2); EOSINOPHILS 0.1 % (0-7); HEMATOCRIT 38.7 % (36.0-48.0); HEMOGLOBIN 12.5 g/dL (12-16); IMMATURE GRANULOCYTES 0.2 % (0-5); LYMPHOCYTES 2.3 % (15-50); MCH 26.3 pg (26.0-34.0); MCHC 32.3 g/dL (31.0-37.0); MCV 81.3 fL (80.0-100.0); MEAN PLATELET VOLUME 10.4 fL (7.4-10.4); MONOCYTES 3.9 % (2-11); NEUTROPHILS 93.4 % (40-80); PLATELET COUNT 278 10x3/uL (130-400); RBC 4.76 10x6/uL (4.00-5.40); RDW 13.9 % (11.5-14.5); WBC 19.9 10x3/uL (4.8-10.8)
[2018-06-03 06:50] LABS: CALCIUM 8.5 mg/dL (8.5-10.1); CARBON DIOXIDE 24.8 mmol/L (21.0-32.0); POTASSIUM - SERUM 3.8 mmol/L (3.5-5.1)
--- NOTE | 2018-06-03 08:50 | NUR ---
PT AAOX4 RESP EVEN AND NONALBORED, NO SIGNS OF DISTRESS NOTED, WILL CONTINUE TO MONITOR, REQUESTING SOME ICE WATER AT THIS TIME GIVEN TO PT, CL IN REACH
--- NOTE | 2018-06-03 14:31 | NUR ---
RESTING QUIETLY IN BED AT THIS TIME.
--- NOTE | 2018-06-03 22:49 | NUR ---
PT A/O, SITTING UP IN BED. ABARCA IN PLACE, CLEAR YELLOW URINE NOTED. VITALS STABLE. TOOK MEDS CRUSHED IN ICE CREAM DUE TO DRY MOUTH. R FOREARM IV WITH NS @ 50 CC/HR. 5L O2 VIA NC. BED ALARM ON. SCDS ON AND WORKING PROPERLY. NO FURTHER CONCERS AT THIS TIME. BED LOWERED AND LOCKED. CL IN REACH. WILL CPOC.
[2018-06-04] VITALS: BP 110/66
--- NOTE | 2018-06-04 03:28 | NUR ---
PATIENT RESTING IN BED WITH APPEALS REFEREE AT BEDSIDE. NO S/S OF DISTRESS. BED IN LOWEST POSITION. WILL CONTINUE TO MONITOR.
[2018-06-04 04:00] VITALS: BP 117/64
--- NOTE | 2018-06-04 05:36 | NUR ---
PT LAYING IN BED RESTING. STATES THAT MOUTH IS DRY AND CANT SWALLOW. VITALS STABLE THIS AM. ABARCA EMPTIED OF 1500 CC YELLOW URINE. NO PAIN NOTED AT THIS TIME. BED LOWERED AND LOCKED. CPOC.
[2018-06-04 06:44] LABS: BASOPHILS 0 % (0-2); EOSINOPHILS 1.7 % (0-7); HEMATOCRIT 34.5 % (36.0-48.0); HEMOGLOBIN 10.6 g/dL (12-16); IMMATURE GRANULOCYTES 0.3 % (0-5); LYMPHOCYTES 2.6 % (15-50); MCH 25.5 pg (26.0-34.0); MCHC 30.7 g/dL (31.0-37.0); MCV 83.1 fL (80.0-100.0); MEAN PLATELET VOLUME 10.3 fL (7.4-10.4); NEUTROPHILS 89.4 % (40-80); PLATELET COUNT 224 10x3/uL (130-400); RBC 4.15 10x6/uL (4.00-5.40); RDW 14.4 % (11.5-14.5); WBC 15.4 10x3/uL (4.8-10.8)
[2018-06-04 06:50] LABS: CALCIUM 8.3 mg/dL (8.5-10.1); CARBON DIOXIDE 21.8 mmol/L (21.0-32.0); CHLORIDE - SERUM 109 mmol/L (98-107); GLUCOSE 73 mg/dL (74-106); POTASSIUM - SERUM 3.6 mmol/L (3.5-5.1); SODIUM 143 mmol/L (136-145)
[2018-06-04 06:55] LABS: CALC OSMOLALITY 286 mosm/kg (275-300); CREATININE - SERUM 0.6 mg/dL (0.6-1.3); UREA NITROGEN 22 mg/dL (7-18); eGFR NON AFRICAN AMERICAN > 90 mL/min (90-120)
[2018-06-04 08:05] VITALS: BP 113/65
--- NOTE | 2018-06-04 08:05 | NUR ---
PT AAOX4 RESP EVEN AND NONLABORED, NO SIGNS OF DISTRESS NOTED, REQUESTING TO BE PULLED UP TO EAT BREAKFAST DONE AT THIS TIME, NO OTHER NEEDS EXPRESSED AT THIS TIME WILL CONTINUE TO MONITOR
--- NOTE | 2018-06-04 10:57 | NUR ---
REHAB PRESCREENING Rehab referral and chart reviewed. This patient has [facility] as her provider which requires prior authorization for ARU. In order to begin this process we will need both PT and OT evaluations. PT has been ordered and is pending. OT will need to be ordered. Rehab will continue to follow this patient for eval completions and will beging prior auth process at that time. Thank you for this referral! Gracie Harding, RESIDENTIAL DRIVER Rehab PD
[2018-06-04 12:00] VITALS: BP 128/73
--- NOTE | 2018-06-04 12:49 | NUR ---
PT REQUESTING TO BE LIFTED UP IN BED DONE AT THIS TIME CL IN REACH
--- NOTE | 2018-06-04 14:00 | NUR ---
CONTRACT PROGRAMMER NOTES - PT EMACIATED. 4L O2 PER NC. GENERALIZED WEAKNESS. CALL LIGHT IN REACH.
[2018-06-04 16:00] VITALS: BP 113/66
--- NOTE | 2018-06-04 16:48 | NUR ---
PT REQUESTING SOME WATER BROUGHT AT THIS TIME, FAMILY AT BEDSIDE WILL CONTINUE TO MONITOR, CL IN REACH
--- NOTE | 2018-06-04 18:40 | NUR ---
PT AAOX4 RESP EVEN AND NONLABORED, NO SIGNS OF DISTRESS NOTED, NO CONCERNS/QUESTIONS EXPRESSED AT THIS TIME, CL IN REACH
--- NOTE | 2018-06-04 20:01 | NUR ---
REST QUIELTY IN BED, CALL LIGHT IN REACH.
--- NOTE | 2018-06-04 23:55 | NUR ---
REST IN BED, RESP EVEN, NO DISTRESS, CALL LIGHT IN REACH.
--- NOTE | 2018-06-05 02:17 | NUR ---
PATIENT RESTING IN BED WITH EYES CLOSED AND NO S/S OF DISTRESS. BED IN LOWEST POSITION AND CALL LIGHT WITHIN REACH. WILL CONTINUE TO MONITOR.
[2018-06-05 06:05] LABS: BASOPHILS 0.1 % (0-2); EOSINOPHILS 3.1 % (0-7); HEMATOCRIT 33.6 % (36.0-48.0); HEMOGLOBIN 10.4 g/dL (12-16); IMMATURE GRANULOCYTES 0.5 % (0-5); LYMPHOCYTES 2.9 % (15-50); MCH 25.7 pg (26.0-34.0); MCV 83.2 fL (80.0-100.0); MEAN PLATELET VOLUME 10.1 fL (7.4-10.4); NEUTROPHILS 86.4 % (40-80); PLATELET COUNT 215 10x3/uL (130-400); RBC 4.04 10x6/uL (4.00-5.40); RDW 14.4 % (11.5-14.5); WBC 15.3 10x3/uL (4.8-10.8)
[2018-06-05 06:31] LABS: CALC OSMOLALITY 276 mosm/kg (275-300); CALCIUM 7.9 mg/dL (8.5-10.1); CARBON DIOXIDE 23.5 mmol/L (21.0-32.0); CHLORIDE - SERUM 105 mmol/L (98-107); CREATININE - SERUM 0.6 mg/dL (0.6-1.3); GLUCOSE 83 mg/dL (74-106); POTASSIUM - SERUM 3.9 mmol/L (3.5-5.1); SODIUM 139 mmol/L (136-145); UREA NITROGEN 13 mg/dL (7-18); eGFR NON AFRICAN AMERICAN > 90 mL/min (90-120)
[2018-06-05 08:38] VITALS: BP 107/66
--- NOTE | 2018-06-05 09:06 | NUR ---
LYING IN BED WITH EYES CLOSED. CALL LIGHT IN EASY REACH.
[2018-06-05 12:30] VITALS: BP 119/70
--- NOTE | 2018-06-05 16:31 | MORECARE ---
CASE MANAGEMENT DISCHARGE SUMMARY PATIENT: ANAHI CHINO UNIT: [id number] ADM DATE: 06/02/18 AGE: 72 : 45 SEX: F ROOM/BED: D.1213 AUTHOR: BRANDI MARTÍNEZ PHYSICIAN: REFERRING PHYSICIAN: ARCELIA MULLIGAN MD DATE OF SERVICE: 06/05/18 Discharge Plan Patient Name: ANAHI CHINO Facility: [facility]:[place] : 1945 Planned Disposition: Anticipated Discharge Date: Discharge Date: Expected LOS: Initial Reviewer: [email or web address] Initial Review Date: 06/05/2018 Generated: 06/05/18 5:31 pm Comments DCP- Discharge Planning Updated by [email or web address]: Cori Welch on 06/05/18 3:[address] Patient Name: ANAHI CHINO Admission Status: ER Accout number: [id number] Admission Date: 06-02-2018 : 1945 Admission Diagnosis: Attending: ARCELIA MULLIGAN Current LOS: 3 Anticipated DC Date: Planned Disposition: [facility] Discharge Planning Comments: CM MET WITH PATIENT ABOUT DC PLANNING/NEEDS. STATES PLANS TO DC TO HOME WITH AND RESUME HH. STATES WOULD DO INPATIENT REHAB IF NEEDED TO BUT REFUSES SNF. CM WILL NEED TO ASSESS FOR POSSIBLE O2 NEEDS CLOSER TO DC. CM WILL FOLLOW AND ASSIST NEEDED WITH DC PLANNING/NEEDS. Merchandising Stock Associate: Cori Welch DCPIA - Discharge Planning Initial Assessment Updated by [email or web address]: Cori Welch on 06/05/18 4:21 pm * Is the patient Alert and Oriented? Yes * PCP [place] * [facility]acy [facility] [place] * Preadmission Environment Home with Family * ADLs Independent * Equipment None * Community resources currently utilized Home Health * Please name any agencies selected above. NAV * Can the patient safely return to the preadmission environment? Yes * Has this patient been hospitalized within the prior 30 days at any hospital? Yes Patient Name: ANAHI CHINO Page [phone] at 1631 All edits/amendments must be made on the electronic document DICTATION DATE: 06/05/18 163 ECHOCARDIOGRAPHER: DM 06/05/18 1631 RPT#: [id number] DC DATE: STATUS: ADM IN [facility] [address] [place] [address] END OF REPORT
[2018-06-05 17:03] VITALS: BP 106/67
--- NOTE | 2018-06-05 19:49 | NUR ---
SIT UP IN BED, AND WATCH TV. SCD ON, CALL LIGHT IN REACH.
--- NOTE | 2018-06-05 21:05 | NUR ---
PT HAS STAGE II PRESSURE IN BUTTOCK, MEPILEX DRESSING APPLYED.
[2018-06-05 22:01] VITALS: BP 108/65
[2018-06-06] VITALS: BP 109/71
--- NOTE | 2018-06-06 01:54 | NUR ---
AWAKE. LYING IN BED. NS @ 50 ML/HR INFUSING IN RT FOREARM WITHOUT DIFF. ABARCA CATH PATENT AND DRAINING CLEAR YELLOW URINE. RESP NONLABORED. NO DISTRESS. GEN WEAKNESS NOTED. SR ELEVATED X2. CL IN REACH.
--- NOTE | 2018-06-06 02:06 | NUR ---
REST QUIETLY IN BED, CALL LIGHT IN REACH.
--- NOTE | 2018-06-06 04:56 | NUR ---
REST QUIELTY IN BED, CALL LIGHT IN REACH.
[2018-06-06 05:59] VITALS: BP 123/79
--- NOTE | 2018-06-06 06:21 | NUR ---
PT REFUSED MENDEZ, STATE: "THIS MED MAKE ME FEEL NAUSEA."
[2018-06-06 07:06] LABS: BASOPHILS 0.1 % (0-2); EOSINOPHILS 1.8 % (0-7); HEMATOCRIT 36.4 % (36.0-48.0); HEMOGLOBIN 11.4 g/dL (12-16); IMMATURE GRANULOCYTES 0.9 % (0-5); LYMPHOCYTES 3.9 % (15-50); MCH 25.8 pg (26.0-34.0); MCHC 31.3 g/dL (31.0-37.0); MCV 82.4 fL (80.0-100.0); MEAN PLATELET VOLUME 10.5 fL (7.4-10.4); MONOCYTES 9.3 % (2-11); PLATELET COUNT 224 10x3/uL (130-400); RBC 4.42 10x6/uL (4.00-5.40); RDW 14.4 % (11.5-14.5)
[2018-06-06 07:22] LABS: CALC OSMOLALITY 264 mosm/kg (275-300); CALCIUM 7.8 mg/dL (8.5-10.1); CARBON DIOXIDE 23.6 mmol/L (21.0-32.0); CHLORIDE - SERUM 99 mmol/L (98-107); CREATININE - SERUM 0.6 mg/dL (0.6-1.3); POTASSIUM - SERUM 3.9 mmol/L (3.5-5.1); SODIUM 134 mmol/L (136-145); UREA NITROGEN 11 mg/dL (7-18); eGFR NON AFRICAN AMERICAN > 90 mL/min (90-120)
[2018-06-06 07:29] LABS: GLUCOSE 70 mg/dL (74-106)
[2018-06-06 09:43] VITALS: BP 116/68
[2018-06-06 11:45] VITALS: BP 113/68
--- NOTE | 2018-06-06 12:08 | NUR ---
OT NOTE: PERFORMED BED MOB WITH MIN ASSIST; SIT TO STAND WITH MIN ASSIST; AMB WITH ASSIST OF P.T. AND O.T...NUMEROUS EPISODES OF LOB DURING AMB; ABLE TO RANDY SOCKS WITH MIN ASSIST; GROOMING WITH SET UP EMPERATRIZ MCINTYRE OTR/L
--- NOTE | 2018-06-06 13:19 | NUR ---
AHA mechanical diet with 41% average po intake Pt reports she does not want mighty shakes or magic cup Pt does not want Boost or Ensure Pt will try peanut butter between meals tp increase calorie content Per nursing, physician asked pt about PEG and pt denied for now RD following
--- NOTE | 2018-06-06 14:01 | MORECARE ---
CASE MANAGEMENT DISCHARGE SUMMARY PATIENT: ANAHI CHINO UNIT: [id number] ADM DATE: 06/02/18 AGE: 72 : 45 SEX: F ROOM/BED: D.1213 AUTHOR: BRANDI MARTÍNEZ PHYSICIAN: REFERRING PHYSICIAN: ARCELIA MULLIGAN MD DATE OF SERVICE: 06/06/18 Discharge Plan Patient Name: ANAHI CHINO Facility: [facility]:[place] : 1945 Planned Disposition: Anticipated Discharge Date: Discharge Date: Expected LOS: Initial Reviewer: [email or web address] Initial Review Date: 06/05/2018 Generated: 06/06/18 3:01 pm Comments DCP- Discharge Planning Updated by [email or web address]: Cori Welch on 06/06/18 12:[address] Patient Name: ANAHI CHINO Admission Status: ER Accout number: [id number] Admission Date: 06-02-2018 : 1945 Admission Diagnosis: Attending: ARCELIA MULLIGAN Current LOS: 4 Anticipated DC Date: Planned Disposition: [facility] Discharge Planning Comments: OT AND PT EVALS ARE DONE, CALLED AND LEFT CHRISSY WITH INPT REHAB A . I BELIEVE FROM THE NOTES SHE IS WORKING ON AUTH. PATIENT IS IN AGREEMENT WITH GOING TO INPT REHAB. Financial Services Representative: Cori Welch DCP- Discharge Planning Updated by [email or web address]: Cori Welch on 06/05/18 3:[address] Patient Name: ANAHI CHINO Admission Status: ER Accout number: [id number] Admission Date: 06-02-2018 : 1945 Admission Diagnosis: Attending: ARCELIA MULLIGAN Current LOS: 3 Anticipated DC Date: Planned Disposition: Primary Insurance: [facility] Discharge Planning Comments: CM MET WITH PATIENT ABOUT DC PLANNING/NEEDS. STATES PLANS TO DC TO HOME WITH AND RESUME HH. STATES WOULD DO INPATIENT REHAB IF NEEDED TO BUT REFUSES SNF. CM WILL NEED TO ASSESS FOR POSSIBLE O2 NEEDS CLOSER TO DC. CM WILL FOLLOW AND ASSIST NEEDED WITH DC PLANNING/NEEDS. Financial Services Representative: Cori Welch DCPIA - Discharge Planning Initial Assessment Updated by [email or web address]: Cori Welch on 06/05/18 4:21 pm * Is the patient Alert and Oriented? Yes * PCP [place] * [facility]acy [facility] [place] * Preadmission Environment Home with Family * ADLs Independent * Equipment None * Community resources currently utilized Home Health * Please name any agencies selected above. NAV * Can the patient safely return to the preadmission environment? Yes * Has this patient been hospitalized within the prior 30 days at any hospital? Yes Coverage Notice Reviewer: [id number] - Coririck Welch Notice Issued Date-Time: 06/06/2018 8:56 Notice Type: IM Discharge Notice Notice Delivered To: Patient Relationship to Patient: Self Manager Of Broadcast Content Name: Delivery Method: HAND - Hand Delivered Meyl Days: Prior Verbal Notification: Recipient Understood Notice: Yes Recipient Signature: Yes Med Rec Note Co-signed by Attending: Coverage Notice Comment: Last DP export: 06/05/18 3:31 pm Patient Name: ANAHI CHINO Page [phone] at 1401 All edits/amendments must be made on the electronic document DICTATION DATE: 06/06/18 1400 MANAGER STATISTICAL: MELIZA 06/06/18 1400 RPT#: [id number] DC DATE: STATUS: ADM IN [facility] [address] [place] [address] END OF REPORT
--- NOTE | 2018-06-06 17:27 | NUR ---
OT NOTE: PT COMPLETED GROOMING TASKS WITH SET UP. PT COMPLETED BED MOB WITH TOMASZ Mercedes. THANK YOU, DONNIE MERRILL
[2018-06-06 19:54] VITALS: BP 110/64
--- NOTE | 2018-06-06 20:05 | NUR ---
ALERT AND ORIENTED X4. LYING IN BED. PT IS EMACIATED. GEN WEAKNESS NOTED. RESP EVEN AND NONLABORED. O2 @ 4L/NC. NONPROD COUGH NOTED. ABARCA CATH PATENT AND DRAINING CLEAR YELLOW URINE. SALINE LOCK NOTED TO RT FOREARM. DRSG TO BUTTOCKS IN INTACT. SCDS ON BILAT. NO EDEMA NOTED. SR ELEVATED X2. CL IN REACH.
--- NOTE | 2018-06-07 01:48 | NUR ---
HAS RESTED WELL SO FAR TONIGHT. NO DISTRESS. CL IN REACH.
[2018-06-07 05:12] VITALS: BP 121/76
--- NOTE | 2018-06-07 05:30 | NUR ---
MEDICATED WITH ZOFRAN FOR C/O NAUSEA. DRY HEAVING. NO EMESIS NOTED.
[2018-06-07 06:59] LABS: BASOPHILS 0.1 % (0-2); EOSINOPHILS 0.4 % (0-7); HEMATOCRIT 33.9 % (36.0-48.0); HEMOGLOBIN 10.7 g/dL (12-16); IMMATURE GRANULOCYTES 0.9 % (0-5); LYMPHOCYTES 4.7 % (15-50); MCH 25.5 pg (26.0-34.0); MCHC 31.6 g/dL (31.0-37.0); MCV 80.9 fL (80.0-100.0); MEAN PLATELET VOLUME 10.2 fL (7.4-10.4); MONOCYTES 5.5 % (2-11); NEUTROPHILS 88.4 % (40-80); PLATELET COUNT 218 10x3/uL (130-400); RBC 4.19 10x6/uL (4.00-5.40); RDW 14.4 % (11.5-14.5); WBC 14.5 10x3/uL (4.8-10.8)
[2018-06-07 07:11] LABS: CALC OSMOLALITY 259 mosm/kg (275-300); CALCIUM 7.7 mg/dL (8.5-10.1); CHLORIDE - SERUM 97 mmol/L (98-107); CREATININE - SERUM 0.6 mg/dL (0.6-1.3); GLUCOSE 71 mg/dL (74-106); POTASSIUM - SERUM 3.8 mmol/L (3.5-5.1); SODIUM 131 mmol/L (136-145); UREA NITROGEN 11 mg/dL (7-18); eGFR NON AFRICAN AMERICAN > 90 mL/min (90-120)
[2018-06-07 08:27] VITALS: BP 108/62
--- NOTE | 2018-06-07 10:41 | NUR ---
Rehab Note- [facility]. Stated Ref#[id number], case is with the nurse reviewer at this time. Will continue to await for a determination for possible inpatient acute rehab stay. Luz Weiss RN Clinical Liaison, [facility] Rehab
[2018-06-07 11:16] VITALS: BP 103/63
--- NOTE | 2018-06-07 14:28 | MORECARE ---
CASE MANAGEMENT DISCHARGE SUMMARY PATIENT: ANAHI CHINO UNIT: [id number] ADM DATE: 06/02/18 AGE: 72 : 45 SEX: F ROOM/BED: D.1213 AUTHOR: BRANDI MARTÍNEZ PHYSICIAN: REFERRING PHYSICIAN: ARCELIA MULLIGAN MD DATE OF SERVICE: 06/07/18 Discharge Plan Patient Name: ANAHI CHINO Facility: [facility]:[place] : 1945 Planned Disposition: Anticipated Discharge Date: Discharge Date: Expected LOS: Initial Reviewer: [email or web address] Initial Review Date: 06/05/2018 Generated: 06/07/18 3:28 pm Comments DCP- Discharge Planning Updated by [id number]: Cori Welch on 06/06/18 12:[address] Patient Name: ANAHI CHINO Admission Status: ER Accout number: [id number] Admission Date: 06-02-2018 : 1945 Admission Diagnosis: Attending: ARCELIA MULLIGAN Current LOS: 4 Anticipated DC Date: Planned Disposition: [facility] Discharge Planning Comments: OT AND PT EVALS ARE DONE, CALLED AND LEFT CHRISSY WITH INPT REHAB A . I BELIEVE FROM THE NOTES SHE IS WORKING ON AUTH. PATIENT IS IN AGREEMENT WITH GOING TO INPT REHAB. Business Applications Analyst: Cori Welch DCP- Discharge Planning Updated by [email or web address]: Cori Welch on 06/05/18 3:[address] Patient Name: ANAHI CHINO Admission Status: ER Accout number: [id number] Admission Date: 06-02-2018 : 1945 Admission Diagnosis: Attending: ARCELIA MULLIGAN Current LOS: 3 Anticipated DC Date: Planned Disposition: Primary Insurance: [facility] Discharge Planning Comments: CM MET WITH PATIENT ABOUT DC PLANNING/NEEDS. STATES PLANS TO DC TO HOME WITH AND RESUME HH. STATES WOULD DO INPATIENT REHAB IF NEEDED TO BUT REFUSES SNF. CM WILL NEED TO ASSESS FOR POSSIBLE O2 NEEDS CLOSER TO DC. CM WILL FOLLOW AND ASSIST NEEDED WITH DC PLANNING/NEEDS. Business Applications Analyst: Cori Welch DCPIA - Discharge Planning Initial Assessment Updated by [email or web address]: Cori Welch on 06/05/18 4:21 pm * Is the patient Alert and Oriented? Yes * PCP [place] * [facility]acy [facility] [place] * Preadmission Environment Home with Family * ADLs Independent * Equipment None * Community resources currently utilized Home Health * Please name any agencies selected above. NAV * Can the patient safely return to the preadmission environment? Yes * Has this patient been hospitalized within the prior 30 days at any hospital? Yes Coverage Notice Reviewer: [id number] - Coririck Welch Notice Issued Date-Time: 06/06/2018 8:56 Notice Type: IM Discharge Notice Notice Delivered To: Patient Relationship to Patient: Self Instruction Assistant Principal Name: Delivery Method: HAND - Hand Delivered Mely Days: Prior Verbal Notification: Recipient Understood Notice: Yes Recipient Signature: Yes Med Rec Note Co-signed by Attending: Coverage Notice Comment: Last DP export: 06/06/18 1:01 pm Patient Name: ANAHI CHINO Page [phone] at 1428 All edits/amendments must be made on the electronic document DICTATION DATE: 06/07/181426 HAND LENS POLISHER: MELIZA 06/07/18 1427 RPT#: [id number] DC DATE: STATUS: ADM IN [facility] [address] [place] [address] END OF REPORT
--- NOTE | 2018-06-07 15:05 | NUR ---
OT NOTE: PT PERFORMED WELL TODAY; BED MOB WITH MIN ASSIST; MAX ASSIST TO RANDY SOCKS BUT SET UP FOR WASHING FACE AND HANDS WITH WASHCLOTH; AMB APPROX 25 FT WITH RW AND MIN ASSIST FOR BALANCE AND FOOT PLACEMENT DUE TO NEUROPATHY. EMPERATRIZ MCINTYRE, OTR/L
[2018-06-07 15:14] VITALS: BP 105/67
--- NOTE | 2018-06-07 19:38 | NUR ---
PT ALERT AND ORIENTED. FIXING TABLE TO HOW SHE WANTS IT AND REPOSITIONED IN BED. PT ON NS AT 50 TO RIGHT FOREARM 20G IV. PT WEARING GLASSES, TEVIN NOTED WITH YELLOW URINE, SCD'S IN ROOM BUT NOT ON AT THIS TIME. PT STATES WILL PUT ON SCD'S LATER ON. PLACED NAME AND DATE ON BOARD. BEDLOW AND CALL LIGHT IN REACH. PT WILL CALL FOR ASSIST WHEN NEEDED. WILL CPOC
[2018-06-07 20:23] VITALS: BP 113/64
--- NOTE | 2018-06-08 00:01 | NUR ---
PT REPOSTIONED SELF INTO BED. PT DENIES ANY NEEDS. NO S/S OF DISTRESS. PT BEDLOW AND CALL LIGHT IN REACH. WILL CPOC
[2018-06-08 00:25] VITALS: BP 114/68
--- NOTE | 2018-06-08 03:50 | NUR ---
PT ASLEEP. RESP EVEN AND UNLABORED. NO S/S OF DISTRESS. BEDLOW AND CALL LIGHT IN REACH. NS INFUSING ORDERED. WILL CPOC
[2018-06-08 04:00] VITALS: BP 120/68
--- NOTE | 2018-06-08 06:35 | NUR ---
PT RESTING IN BED. NO S/S OF DISTRESS. RESP EVEN AND UNLABORED. 3.5L O2 NC. PT WILL CALL FOR ASSIST WHEN NEEDED., WILL CPOC
[2018-06-08 07:00] LABS: BASOPHILS 0.1 % (0-2); EOSINOPHILS 0.7 % (0-7); HEMATOCRIT 33.2 % (36.0-48.0); HEMOGLOBIN 10.4 g/dL (12-16); LYMPHOCYTES 5.3 % (15-50); MCH 25.3 pg (26.0-34.0); MCHC 31.3 g/dL (31.0-37.0); MCV 80.8 fL (80.0-100.0); MEAN PLATELET VOLUME 9.5 fL (7.4-10.4); MONOCYTES 4.9 % (2-11); PLATELET COUNT 203 10x3/uL (130-400); RBC 4.11 10x6/uL (4.00-5.40); RDW 14.4 % (11.5-14.5); WBC 12.4 10x3/uL (4.8-10.8)
[2018-06-08 07:11] LABS: CALC OSMOLALITY 262 mosm/kg (275-300); CALCIUM 7.6 mg/dL (8.5-10.1); CARBON DIOXIDE 20.7 mmol/L (21.0-32.0); CHLORIDE - SERUM 97 mmol/L (98-107); CREATININE - SERUM 0.6 mg/dL (0.6-1.3); SODIUM 133 mmol/L (136-145); UREA NITROGEN 11 mg/dL (7-18); eGFR NON AFRICAN AMERICAN > 90 mL/min (90-120)
[2018-06-08 07:12] LABS: GLUCOSE 66 mg/dL (74-106)
[2018-06-08 08:14] VITALS: BP 111/68
[2018-06-08 11:52] VITALS: BP 117/72
--- NOTE | 2018-06-08 16:00 | NUR ---
OT NOTE: BED MOB WITH MIN ASSIST; SUPINE TO SIT WITH MIN ASSIST. SIMPLE GROOMING TASKS WITH SET UP. EMPERATRIZ MCINTYRE, OTR/L
[2018-06-08 16:07] VITALS: BP 106/63
--- NOTE | 2018-06-08 17:29 | NUR ---
SPOKE TO JENNIFER/DR SCHULTZ, VERBAL ORDER TO START BLADDER TRAINING AND DC ABARCA.
[2018-06-08 20:00] VITALS: BP 124/68
--- NOTE | 2018-06-08 21:30 | NUR ---
PT COMPLAINS OF NAUSEA, ZOFRAN GIVEN ORDERED. PT UNABLE TO DRINK MIRALAX. MEDICATIONS FOUND AT BEDSIDE FROM DAY SHIFT. PT WAS UNABLE TO TAKE. DISCARDED PER PROTOCOL, NIGHT MEDS WILL BE GIVEN ONCE ZOFRAN HELPS NAUSEA. PEPCID GIVEN IVP. 50ML/HR NS TO RIGHT FOREARM. PT WEARING GLASSES. WATCHING TV. PT VERBLAIZED UNDERSTANDING OF GETTING ABARCA REMOVED THROUGHOUT NIGHT. STARTED BLADDER TRAINING. PT WILL CALL FOR ASSIST WHEN NEEDED. WILL CPOC
--- NOTE | 2018-06-08 22:56 | NUR ---
OT NOTE: PT IS NAUSEOUS THIS PM. PT COMPLETED BUE AROM EXS. PT COMPLETED HYGIENE TASK WITH SET UP IN BED. THANK YOU, DONNIE MERRILL
--- NOTE | 2018-06-08 23:31 | NUR ---
SPOKE TO JENNIFER REGARDING PT UNABLE TO DRINK MIRALAX, SHE STATED TO START COLACE 100MG PO BID AND DULCOLAX SUPP 10MG Q6H PRN. WILL START ORDERS TONIGHT
[2018-06-09] VITALS (7 sets, daily range): BP systolic 110–137; BP diastolic 63–82
--- NOTE | 2018-06-09 00:38 | NUR ---
COLACE AND DULCOLAX SUPP GIVEN. PT WAS UNABLE TO TAKE NIGHT MEDS DUE TO NAUSEA. DISCARDED INTO SHARPS. PT ABARCA WAS CLAMPED AT 2208 UNCLAMPED AND RECLAMPED AT 2242 UNCLAMPTED AND RECLAMPED AGAIN AT 0030. PT CALLS STATING SHE FEELS BLADDER SPASMS. URINE OUT PUT EACH TIME, LAST 15ML PT WILL CALL FOR ASSIST WHEN NEEDED. SCDS ON BILATERAL LOWER EXTREM. PT WILL CALL FOR ASSIST WHEN NEEDED,. WILL CPCO
--- NOTE | 2018-06-09 04:33 | NUR ---
PT HAVING NAUSEA ZOFRAN GIVEN. WILL CPOC
--- NOTE | 2018-06-09 07:42 | NUR ---
AABRCA REMOVED. PT VERBALIZED UNDERSTANING TO CALL FOR ASSIST. NURSE RECEIVING REPORT AWARE OF HISTORY OF RETENSION. PT WILL CALL FOR ASSIST
--- NOTE | 2018-06-09 08:12 | NUR ---
ROUNDING DONE WITH PATIENT THROWING UP IN EMESIS BAG. CAN NOT GIVE ZOFRAN UNTIL 0830. ON 3.5 L NC. VERY THIN LADY WITH ASCITES (LARGE) TO ABDOMINAL AREA. ABARCA CATH WAS REMOVED AT END OF SHIFT, WILL MONITOR FOR URINAL OUTPUT. RIGHT FA PIV SEEN WITH NS INFUSING AT 50 CC/HR. ON EP, NO LABS DRAWN. ORDERED. WILL GIVE ZOFRAN SOON I CAN.
--- NOTE | 2018-06-09 08:38 | NUR ---
ZOFRAN GIVEN PER REQUESTED. NEW EMESIS BAGS GIVEN.
[2018-06-09 08:48] LABS: MAGNESIUM - SERUM 1.3 mg/dL (1.8-2.4); POTASSIUM - SERUM 4.1 mmol/L (3.5-5.1)
--- NOTE | 2018-06-09 10:56 | NUR ---
SUPP. GIVEN PER REQUEST. PATIENT IS TOO NAUSEATED TO TAKE HER OTHER MEDS.
--- NOTE | 2018-06-09 11:02 | NUR ---
PATIENT IS UNABLE TO TAKE ORAL MAG FOR EP RELACEMENT. I CALLED [facility] IN THE PHARMACY FOR IV RIDERS.
--- NOTE | 2018-06-09 13:36 | NUR ---
Pt has deep tissue injury on left buttock and deep tissue injury on right buttock (both at coccyx region). Covered with mepilex sacral dressing and pt positioned herself on the left side. She is able to reposition/turn with minimal assistance. Recommended pt be placed on air overlay mattress.
--- NOTE | 2018-06-09 14:43 | NUR ---
PATIENT HAS NOT VOIDED SINCE CATH WAS REMOVED THIS AM. BLADDER SCAN PERFORMED WITH 531 ML SEEN. CALL PLACED TO JENNIFER NOLASCO APN TO SEE WHAT NEW ORDERS NEED TO BE DONE. AWAITING CALL BACK.
--- NOTE | 2018-06-09 15:07 | NUR ---
JENNIFER NOLASCO APN TO CALL BACK AND NEW ORDRS RECEIVED.
--- NOTE | 2018-06-09 15:32 | NUR ---
IN AND OUT CATH DONE ORDERED. COMPLETE BED LINEN CHANGED DONE AND WASH UP.
--- NOTE | 2018-06-09 16:09 | NUR ---
Rehab note- Received Auth for Inpatient Acute Rehab stay Thur 06/08, the patient continues to have nausea, vomiting, and no BM. COntinue to follow at this time. uLz Weiss RN Clinical Liaison, [facility] Rehab
--- NOTE | 2018-06-09 18:07 | NUR ---
STILL NO BM AT THIS TIME.
--- NOTE | 2018-06-09 18:43 | NUR ---
RE-DRAW OF MAG WITH RESULTS OF 2.4.
--- NOTE | 2018-06-09 19:00 | NUR ---
PT ALERT AND ORIENTED WHEN ENTERING THE ROOM. PT WEARING 3.5 L NC. PT PRESENTS LOOKING VERY FRAIL WITH SEVERAL BONY PROMINENCES NOTED. PT ABDOMEN PRESENTS DISTENDED. PT STATES THAT SHE NEEDS TO URINATE BUT "CANT GO" WHILE ASSESSING PT, PT PROCEEDED TO URINATE AND HAVE DISCHARGE THOUGH PT STATED SHE COULD NOT FEEL IT. ESTIMATED TO BE 100 ML. PT HAS LARGE MEPILEX DRESSING TO COCCYX DATED FOR 06/09/18. PT ALSO PRESENTS WITH BRUISE TO RIGHT SIDE. PT STATES THE BRUISE IS FROM PRIOR PROCEDURES. CALL LIGHT IN REACH.
--- NOTE | 2018-06-09 21:56 | NUR ---
OT NOTE: PT COMPLETED BUE AROM EXS FOR INCREASED AX TOLERANCE. PT COMPLETED SIMPLE FACE WASH WITH SET UP. THANK YOU, DONNIE MERRILL
[2018-06-10] VITALS (7 sets, daily range): BP systolic 116–139; BP diastolic 66–77
--- NOTE | 2018-06-10 05:29 | NUR ---
ANSWERED PT CALL LIGHT. PT STATED SHE FELT THE URGE TO USE THE BATHROOM. ASSISTED PT ON BED CALLAWAY. TURNED ON WATER AND ALLOWED PT TO HAVE PRIVACY. PT USED CALL LIGHT WHEN FINISHED. MUCOUSY STOOLS LIGHT BROWN AND YELLOW IN COLOR. LESS THAN 100 CC OF URINE NOTED. ATTEMPTED TO TRANSFER PT TO FIRST STEP OVERLAY MATTRESS. PT REPEATEDLY REFUSED. CALL LIGHT IN REACH.
--- NOTE | 2018-06-10 07:03 | NUR ---
ASSESSED DURING THE NIGHT. PT WAS SEEN WITH ASSIGNED NURSE WHILE DUING AN IN AND OUT CATH. PT WAS C/O FEELING LIKE SHE HSD TO VOID.
--- NOTE | 2018-06-10 07:10 | NUR ---
RECEIVED REPORT. ASSUMED CARE OF PATIENT. CALL LIGHT WITHIN REACH. SPOKE WITH PATIENT ABOUT GETTING UP TO BEDSIDE COMMODE AND HAVING 1ST STEP OVERLAY PLACED ON BED. PATIENT IS OKAY WITH THAT. NO DISTRESS. PATIENT STATES SHE IS CONSTANTLY NAUSEATED.
--- NOTE | 2018-06-10 08:02 | NUR ---
MEDICATED FOR NAUSEA AT THIS TIME. PATIENT TELLS THIS NURSE SHE WILL TAKE ALL IV MEDS BUT DOES NOT WANT ANY ORAL MEDICATIONS BECAUSE SHE VOMITS THEM RIGHT BACK UP. VERBALIZED UNDERSTANDING OF PATIENTS WISHES.
--- NOTE | 2018-06-10 09:28 | NUR ---
ASSISTED OOB TO BSC. SMALL MUCOUS BOWEL MOVEMENT NOTED. 1ST STEP OVERLAY MATTRESS APPLIED TO BED. ASSISTED PATIENT BACK IN BED. ALL PERSONAL BELONGINGS WITHIN REACH. IV FLUIDS INFUSING ORDERED. NO DISTRESS.
--- NOTE | 2018-06-10 12:45 | NUR ---
PT REFUSED LUNCH. WILL NOT EVEN REALLY DRINK ANYTHING. PT FEELS TOO FULL FROM CONSTIPATION AND HEALTH ISSUES. WILL SEE PLAN OF CARE AND TRY TO RELIEVE HER PAIN AND DISCOMFORT.
--- NOTE | 2018-06-10 15:09 | NUR ---
PT STILL UNABLE TO VOID ON HER OWN. ABARCA CATHETER PLACED R/T URINARY RENTENTION. 500CC OF CLEAR CONCENTRATED URINE IMMEDIATELY CAME OUT. CULTURE OBTAINED ORDERED AND SENT TO LAB. PT STILL HAS NOT HAD A GOOD BOWEL MOVEMENT AND FINALLY AGREED FOR ENEMA. DISCUSSED WITH AND ORDERED IT AND WILL TRY. NO IMMEDIATE NEEDS. STAT LOCK SECURED TO L.INNER THIGH, ABARCA DRAINING TO GRAVITY OFF LEFT SIDE OF BED. CL IN REACH. WILL CTM.
[2018-06-10 16:24] LABS: APPEARANCE CLEAR (CLEAR); COLOR YELLOW (YELLOW); GLUCOSE NEGATIVE (NEGATIVE); KETONE MODERATE mg/dL (NEGATIVE); NITRITE NEGATIVE (NEGATIVE); PROTEIN 1+ mg/dL (NEGATIVE); SPECIFIC GRAVITY 1.025 (1.005-1.020)
[2018-06-10 16:25] LABS: BILIRUBIN NEGATIVE (NEGATIVE); EPITHELIAL CELLS 0-5 /hpf (0-5); RED CELLS - URINE 0-5 /hpf (0-5); UROBILINOGEN NORMAL (NORMAL); WHITE CELLS - URINE 0-5 /hpf (0-5); YEAST >1+ WITH HYPHAE /hpf (NONE SEEN)
--- NOTE | 2018-06-10 16:39 | NUR ---
ATTEMPTED SOAP SUDS ENEMA. PT BARELY ABLE TO HOLD ANYTHING IN AND FLUID JUST COMING RIGHT BACK OUT. VERY SMALL PEBBLE SIZE FECES EVACUATED. WILL LEAVE HER ON HER LEFT SIDE AND TRY TO HAVE HER HOLD IN SOME OF THE FLUID. WILL CTM.
--- NOTE | 2018-06-10 16:51 | NUR ---
PT REFUSED DINNER TRAY. STILL TOO FULL AND TIGHT TO EAT AND NO APPETITE.
--- NOTE | 2018-06-10 19:45 | NUR ---
PT ALERT WATCHING TV WHEN ENTERING THE ROOM. ORIENTED WHEN SPOKEN TO. PT ON FIRST STEP OVER LAY MATTRESS. ABARCA CATHETER IN PLACE. ASSISTED PT IN TURNING. PT DENIES ANY OTHER NEEDS AT THIS TIME. CALL LIGHT IN REACH.
--- NOTE | 2018-06-10 21:45 | NUR ---
TURNED PT SEVERAL TIMES SINCE BEGINNING OF SHIFT. HEELS BRIDGED. PT HAS ABARCA CATHETER. SCD'S ON. NASAL CANNULA AT 3.5. AUDIBLE CRACKLES NOTED WELL EXPIRATORY WHEEZES. RIGHT FOREARM IV INFUSING NS @ 50. CALL LIGHT IN REACH. PT USES WHEN IN NEED OF ASSISTANCE.
--- NOTE | 2018-06-11 00:20 | NUR ---
ASSISTED PT IN TURNING. CALL LIGHT IN HAND.
[2018-06-11 04:00] VITALS: BP 131/68
--- NOTE | 2018-06-11 05:45 | NUR ---
ASSISTED IN TURNING. HEELS BRIDGED. HOB RAISED. CALL LIGHT IN HAND.
[2018-06-11 06:13] LABS: ALBUMIN 1.7 g/dL (3.4-5.0); ALKALINE PHOSPHATASE 122 U/L (46-116); ALT (SGPT) 10 U/L (10-68); BILIRUBIN - TOTAL 0.37 mg/dL (0.2-1.3); CALC OSMOLALITY 279 mosm/kg (275-300); CALCIUM 7.9 mg/dL (8.5-10.1); CARBON DIOXIDE 16.4 mmol/L (21.0-32.0); CHLORIDE - SERUM 106 mmol/L (98-107); CREATININE - SERUM 0.5 mg/dL (0.6-1.3); GLUCOSE 78 mg/dL (74-106); POTASSIUM - SERUM 4.1 mmol/L (3.5-5.1); PROTEIN - SERUM 5.7 g/dL (6.4-8.2); SODIUM 141 mmol/L (136-145); UREA NITROGEN 13 mg/dL (7-18); eGFR NON AFRICAN AMERICAN > 90 mL/min (90-120)
[2018-06-11 06:45] LABS: HEMATOCRIT 50.5 % (36.0-48.0); MCH 25.6 pg (26.0-34.0); MCHC 31.7 g/dL (31.0-37.0); MCV 80.8 fL (80.0-100.0); MEAN PLATELET VOLUME 9.4 fL (7.4-10.4); PLATELET COUNT 115 10x3/uL (130-400); RBC 6.25 10x6/uL (4.00-5.40); RDW 15.3 % (11.5-14.5); WBC 20.3 10x3/uL (4.8-10.8)
--- NOTE | 2018-06-11 07:38 | NUR ---
[facility] [employer] [facility] HERE TO TAKE PT FOR GASTROGRAFIN ENEMA. PT VERBALIZED UNDERSTANDING AND IS READY TO GO. NO CURRENT NEEDS. DISCONNECTED PT FROM PIV FLUIDS. WILL CTM.
[2018-06-11 07:55] LABS: LYMPHOCYTES 1 % (15-50); MONOCYTES 5 % (2-11); NEUTROPHILS 90 % (40-80); PLATELET ESTIMATE DECREASED
[2018-06-11 07:56] LABS: TOXIC GRANULATION 3+
[2018-06-11 08:38] VITALS: BP 134/75
--- NOTE | 2018-06-11 09:43 | NUR ---
EXTENSIVE ORAL CARE PROVIDED. PTS MOUTH IS SO DRY SHE CAN BARELY TALK. GREEENISH YELLOW DRAINAGE AND SKIN CAME OUT SHE WAS ABLE TO TOLERATE ME SWABBING AND CLEANING OUT HER MOUTH AND SHE WAS ABLE TO SWISH AROUND WATER AND SPIT IT OUT. PT VOICED THANKS AND DENIES ANY FURTHER NEEDS AT THIS TIME. CL IN REACH. WILL CTM.
--- NOTE | 2018-06-11 09:52 | NUR ---
PT REFUSED ALL MORNING MEDICATIONS R/T FULLNESS FILLING. GASTRO ENEMA WAS NOT SUCCESSFUL. PT STILL IS VERY DISTENDED AND IN A LOT OF DISCOMFORT. PT APPEARS VERY ILL AND SEEMS TO JUST BE WASTING AWAY. VERY SAD. DISCUSSED WITH PRIMARY DOCTOR AND HE IS AT BEDSIDE, DISCUSSING OPTIONS AND PLAN OF CARE WITH PT AND HER . WILL CTM.
--- NOTE | 2018-06-11 12:19 | NUR ---
PT REFUSED LUNCH USUAL AT BEDSIDE. WILL CTM.
[2018-06-11 16:00] VITALS: BP 130/70
[2018-06-11 19:55] VITALS: BP 139/76
--- NOTE | 2018-06-11 21:25 | NUR ---
PT VOMIT SOME GREEN LIQUID FROM STOMACH, REFUSED NIGHT MEDS. CALL LIGHT IN REACH.
[2018-06-11 23:41] VITALS: BP 136/75
[2018-06-12] VITALS (12 sets, daily range): BP systolic 123–155; BP diastolic 63–85; Ht 160 cm; Wt 40.4 kg
--- NOTE | 2018-06-12 02:05 | NUR ---
REST IN BED, CALL LIGHT IN REACH.
--- NOTE | 2018-06-12 03:50 | NUR ---
CHECKED PT [id number]%.
--- NOTE | 2018-06-12 03:58 | NUR ---
PT C/O HARD TIME BREATHING, CALLED RESPIRATORY STAFF.
--- NOTE | 2018-06-12 04:02 | NUR ---
CHECKED PT [id number]%.
[2018-06-12 06:03] LABS: BASOPHILS 0 % (0-2); EOSINOPHILS 0 % (0-7); HEMATOCRIT 31.4 % (36.0-48.0); HEMOGLOBIN 9.9 g/dL (12-16); IMMATURE GRANULOCYTES 0.5 % (0-5); LYMPHOCYTES 1.8 % (15-50); MCH 25.4 pg (26.0-34.0); MCHC 31.5 g/dL (31.0-37.0); MCV 80.5 fL (80.0-100.0); MONOCYTES 3.6 % (2-11); NEUTROPHILS 94.1 % (40-80); PLATELET COUNT 205 10x3/uL (130-400); RDW 15.5 % (11.5-14.5); WBC 22.3 10x3/uL (4.8-10.8)
[2018-06-12 06:31] LABS: ALBUMIN 1.7 g/dL (3.4-5.0); ALKALINE PHOSPHATASE 138 U/L (46-116); ALT (SGPT) 10 U/L (10-68); BILIRUBIN - TOTAL 0.42 mg/dL (0.2-1.3); CALC OSMOLALITY 282 mosm/kg (275-300); CALCIUM 7.9 mg/dL (8.5-10.1); CARBON DIOXIDE 19.9 mmol/L (21.0-32.0); CHLORIDE - SERUM 106 mmol/L (98-107); CREATININE - SERUM 0.4 mg/dL (0.6-1.3); POTASSIUM - SERUM 3.9 mmol/L (3.5-5.1); PROTEIN - SERUM 6.1 g/dL (6.4-8.2); SODIUM 141 mmol/L (136-145); UREA NITROGEN 13 mg/dL (7-18); eGFR NON AFRICAN AMERICAN > 90 mL/min (90-120)
[2018-06-12 06:34] LABS: GLUCOSE 135 mg/dL (74-106)
[2018-06-12 07:34] LABS: APTT 38.1 SECONDS (22.8-39.4); INR 1.24 (0.85-1.17); PROTIME 15.1 SECONDS (11.6-15.0)
--- NOTE | 2018-06-12 10:11 | NUR ---
REhab Note- Continues to have acute work up at this time. WIll continue to follow. Thank you for this referral! Luz Weiss RN CLinical Liaison, [facility] Rehab
--- NOTE | 2018-06-12 13:17 | NUR ---
NPO On Procalamine @ 50mL/hour. Procalamine providing ~300 calories and 35gm protein REC: If pt does not want PEG/PEJ placement, recommend TPN and lipids to better meet pts nutrition needs RD following
--- NOTE | 2018-06-12 19:25 | NUR ---
AWAKE AND RESPONSIVE TO QUESTIONS.. LCTA BUT DEMINISHED LOWER BASES BOWEL SOUND HYPO X4 SKIN WARM AND DRY SRX2 AND BED LOW CALL LIGHT IN REACH IV TO RT FA WNL DENIES NEEDS AT THIS TIME
--- NOTE | 2018-06-12 21:55 | NUR ---
REFUSES ALL PO MEDS STATING NO I CAN NOT SWALLOW ANY THING ENCOURAGED TRY BUT STILL NO... ASSISTED WITH SWAB OF MOUTH
--- NOTE | 2018-06-12 22:30 | NUR ---
PT FLIGHT ATTENDANT RAMP LIGHT, PT REPOSITIONED TO LEFT SIDE WITH PILLOW BEHIND BACK AND BETWEEN KNEES FOR COMFORT AND SUPPORT, PT DENIES FURTHER NEEDS OR PAIN AT THIS TIME, BED IN LOW POSITION, SIDE RAILS X 2, CALL LIGHT IN REACH
[2018-06-13] VITALS: BP 138/79
[2018-06-13 05:04] VITALS: BP 140/80
[2018-06-13 06:44] LABS: ALBUMIN 1.3 g/dL (3.4-5.0); ALKALINE PHOSPHATASE 143 U/L (46-116); ALT (SGPT) 9 U/L (10-68); BILIRUBIN - TOTAL 0.36 mg/dL (0.2-1.3); CALC OSMOLALITY 281 mosm/kg (275-300); CALCIUM 7.5 mg/dL (8.5-10.1); CARBON DIOXIDE 20.8 mmol/L (21.0-32.0); CHLORIDE - SERUM 107 mmol/L (98-107); CREATININE - SERUM 0.5 mg/dL (0.6-1.3); GLUCOSE 135 mg/dL (74-106); POTASSIUM - SERUM 3.8 mmol/L (3.5-5.1); PROTEIN - SERUM 5.6 g/dL (6.4-8.2); SODIUM 140 mmol/L (136-145); UREA NITROGEN 14 mg/dL (7-18); eGFR NON AFRICAN AMERICAN > 90 mL/min (90-120)
[2018-06-13 06:46] LABS: HEMATOCRIT 30.2 % (36.0-48.0); HEMOGLOBIN 9.7 g/dL (12-16); MCH 25.5 pg (26.0-34.0); MCHC 32.1 g/dL (31.0-37.0); MCV 79.3 fL (80.0-100.0); MEAN PLATELET VOLUME 9.2 fL (7.4-10.4); PLATELET COUNT 190 10x3/uL (130-400); RBC 3.81 10x6/uL (4.00-5.40); RDW 15.5 % (11.5-14.5); WBC 21.1 10x3/uL (4.8-10.8)
--- NOTE | 2018-06-13 07:30 | NUR ---
RESTING QUIETLY IN BED, AROUSES TO VOICE, DENIES PAIN BUT ADMITS TO HAVING NAUSEA, PHENERGAN 25 MG ADMIN IM RIGHT VASTUS LATERALIS, BELLA WELL. DENIES FURTHER NEEDS.
[2018-06-13 08:02] VITALS: BP 142/84
--- NOTE | 2018-06-13 09:00 | NUR ---
PATIENT REFUSED ALL PO MEDS.
[2018-06-13 09:02] LABS: LYMPHOCYTES 2 % (15-50); MONOCYTES 3 % (2-11); NEUTROPHILS 89 % (40-80); PLATELET ESTIMATE NORMAL
--- NOTE | 2018-06-13 11:30 | NUR ---
SMALL, SOFT BM NOTED.
--- NOTE | 2018-06-13 12:43 | NUR ---
Nutrition Follow Up: Pt stated that she was very sick and having N/V. Pt's spouse said that pt had just vomited water while trying to take a pill. Pt appeared very frail, pale and sick. Diet: NPO BM: 06/11/18 Labs reviewed Meds noted including Megace, Lasix Procalamine @ 50 ml/hr providing 294 kcal and 35 g protein Rec advancing diet when medically feasible. Rec increasing Procalamine to 75 ml/hr to provide more kcal and protein. Rec consider starting 20% lipids [address] following.
--- NOTE | 2018-06-13 14:20 | NUR ---
OT NOTE: DECLINED THERAPY IN AM AND PM TODAY DUE TO NAUSEA AND VOMITTING. EMPERATRIZ MCINTYRE, OTR/L
[2018-06-13 16:00] VITALS: BP 138/73
--- NOTE | 2018-06-13 19:09 | NUR ---
PHENERGAN GIVEN IM..PT IS VOMITING DARK GREEN TO BROWN EMISIS. BOWEL SOUNDS ACTIVE HYPO AT THIS TIME LOWER RT QUADRANT. LCTA ... SCD IN PLACE SKIN WARM AND DRY. BED IS LOW CALL LIGHT IS IN REACH
[2018-06-13 20:00] VITALS: BP 133/87
[2018-06-14] VITALS: BP 123/71
[2018-06-14 04:00] VITALS: BP 142/83
--- NOTE | 2018-06-14 04:20 | NUR ---
TURNING IV FLUIDS DOWN TO 15 TO KEEP OPEN LUNGS ARE WET WITH SEVERE CRACKLES AND EMISIS CONSTANT
--- NOTE | 2018-06-14 04:46 | NUR ---
POSITIONED HIGHER IN BED AND ENCOURAGED COUGH
[2018-06-14 06:48] LABS: HEMATOCRIT 34.2 % (36.0-48.0); HEMOGLOBIN 11.3 g/dL (12-16); LYMPHOCYTES 2.1 % (15-50); MCH 26.8 pg (26.0-34.0); MEAN PLATELET VOLUME 11.3 fL (7.4-10.4); NEUTROPHILS 92.9 % (40-80); PLATELET COUNT 193 10x3/uL (130-400); RBC 4.22 10x6/uL (4.00-5.40); RDW 16.9 % (11.5-14.5)
[2018-06-14 07:13] LABS: ALBUMIN 1.5 g/dL (3.4-5.0); ALKALINE PHOSPHATASE 185 U/L (46-116); ALT (SGPT) 14 U/L (10-68); BILIRUBIN - TOTAL 0.48 mg/dL (0.2-1.3); CALC OSMOLALITY 282 mosm/kg (275-300); CALCIUM 7.4 mg/dL (8.5-10.1); CARBON DIOXIDE 15.6 mmol/L (21.0-32.0); CHLORIDE - SERUM 104 mmol/L (98-107); CREATININE - SERUM 0.5 mg/dL (0.6-1.3); GLUCOSE 143 mg/dL (74-106); POTASSIUM - SERUM 4.5 mmol/L (3.5-5.1); PROTEIN - SERUM 5.7 g/dL (6.4-8.2); SODIUM 139 mmol/L (136-145); UREA NITROGEN 22 mg/dL (7-18); eGFR NON AFRICAN AMERICAN > 90 mL/min (90-120)
--- NOTE | 2018-06-14 07:15 | NUR ---
REC'D IN BED AWAKE AND ALERT. RESP EVEN AND LABORED WITH O2 IN USE VIA NC. NO C/O NOTED OR VOICED. PT CONTIUE TO SPIT UP COPUS AMOUNT OF GREENISH SPUTUM AND EMESIS. CALL WAS PLACED TO CREDIT ADVISOR TO COME AND ASSESS PT D/T HAVING AND EGD SCHEDULED ON THIS AM. ASSESSMENT COMPLETD. C/L IN REACH AT BEDSIDE.
--- NOTE | 2018-06-14 08:34 | NUR ---
PT AT THIS TIME WITH AT BEDSIDE.
[2018-06-14 08:51] VITALS: BP 116/79
--- NOTE | 2018-06-14 10:30 | NUR ---
PT PRONOUNCED AT THIS TIME. FAMILY TOOK ALL PERSONAL BELONG WITH THEM ON THERE DEPARTURE.
--- NOTE | 2018-06-14 13:05 | NUR ---
PT REMAIN WAS RELEASE TO [facility] AT THIS TIME.
--- NOTE | 2018-06-14 14:31 | MORECARE ---
CASE MANAGEMENT DISCHARGE SUMMARY PATIENT: ANAHI CHINO UNIT: [id number] ADM DATE: 06/02/18 AGE: 72 : 45 SEX: F ROOM/BED: D.1213 AUTHOR: BRANDI MARTÍNEZ PHYSICIAN: REFERRING PHYSICIAN: ARCELIA MULLIGAN MD DATE OF SERVICE: 06/14/18 Discharge Plan Patient Name: ANAHI CHINO Facility: [facility] : 1945 Planned Disposition: Anticipated Discharge Date: Discharge Date: 06/14/2018 Expected LOS: 0 Initial Reviewer: [id number] Initial Review Date: 06/05/2018 Generated: 06/14/18 3:31 pm Comments DCP- Discharge Planning Updated by [email or web address]: Cori Welch on 06/06/18 12:[address] Patient Name: ANAHI CHINO Admission Status: ER Accout number: [id number] Admission Date: 06-02-2018 : 1945 Admission Diagnosis: Attending: ARCELIA MULLIGAN Current LOS: 4 Anticipated DC Date: Planned Disposition: [facility] Discharge Planning Comments: OT AND PT EVALS ARE DONE, CALLED AND LEFT [facility] WITH INPT REHAB A . I BELIEVE FROM THE NOTES SHE IS WORKING ON AUTH. PATIENT IS IN AGREEMENT WITH GOING TO INPT REHAB. Corporate Tax Manager: Cori Welch DCP- Discharge Planning Updated by [id number]: Cori Welch on 06/05/18 3:[address] Patient Name: ANAHI CHINO Admission Status: ER Accout number: [id number] Admission Date: 06-02-2018 : 1945 Admission Diagnosis: Attending: ARCELIA MULLIGAN Current LOS: 3 Anticipated DC Date: Planned Disposition: Primary Insurance: [facility] Discharge Planning Comments: CM MET WITH PATIENT ABOUT DC PLANNING/NEEDS. STATES PLANS TO DC TO HOME WITH AND RESUME HH. STATES WOULD DO INPATIENT REHAB IF NEEDED TO BUT REFUSES SNF. CM WILL NEED TO ASSESS FOR POSSIBLE O2 NEEDS CLOSER TO DC. CM WILL FOLLOW AND ASSIST NEEDED WITH DC PLANNING/NEEDS. Corporate Tax Manager: Cori Welch DCPIA - Discharge Planning Initial Assessment Updated by [id number]: Cori Welch on 06/05/18 4:21 pm * Is the patient Alert and Oriented? Yes * PCP [place] * Pharmacy [facility] [place] * Preadmission Environment Home with Family * ADLs Independent * Equipment None * Community resources currently utilized Home Health * Please name any agencies selected above. [facility] * Can the patient safely return to the preadmission environment? Yes * Has this patient been hospitalized within the prior 30 days at any hospital? Yes Coverage Notice Reviewer: [id number] - Cori Welch Notice Issued Date-Time: 06/06/2018 8:56 Notice Type: IM Discharge Notice Notice Delivered To: Patient Relationship to Patient: Self Vegetable Canner Name: Delivery Method: HAND - Hand Delivered Mely Days: Prior Verbal Notification: Recipient Understood Notice: Yes Recipient Signature: Yes Med Rec Note Co-signed by Attending: Coverage Notice Comment: Last DP export: 06/07/18 1:28 pm Patient Name: ANAHI CHINO Page [phone] at 1431 All edits/amendments must be made on the electronic document DICTATION DATE: 06/14/18 1431 STEP FINISHER: MELIZA 06/14/18 1431 RPT#: [id number] DC DATE:06/14/18 STATUS: DIS IN [id number] [place] [address] END OF REPORT
== END 2018-06-14 13:09 | DRG 177 ==
LOC: D.ER 15:27 → D.EDHOLD 20:04 → D.M3 20:04
PROVIDERS: Emergency Medicine; Family Medicine; General Practice; Internal Medicine Gastroenterology; ADMIT Internal Medicine Nephrology; ATTEND Internal Medicine Nephrology
PROC: 0W9G3ZZ Drainage of Peritoneal Cavity, Percutaneous Approach (ICD-10-PCS; principal; 2018-06-12 14:50)
DX: J69.0 Pneumonitis due to inhalation of food and vomit (principal); J96.01 Acute respiratory failure with hypoxia; E43 Unspecified severe protein-calorie malnutrition; N17.9 Acute kidney failure, unspecified; R18.8 Other ascites; Z68.1 Body mass index [BMI] 19.9 or less, adult; N13.30 Unspecified hydronephrosis; K74.60 Unspecified cirrhosis of liver; K21.9 Gastro-esophageal reflux disease without esophagitis; K59.09 Other constipation; G89.4 Chronic pain syndrome; D50.9 Iron deficiency anemia, unspecified; N30.80 Other cystitis without hematuria; Z66 Do not resuscitate; T17.900A Unspecified foreign body in respiratory tract, part unspecified causing asphyxiation, initial encounter